=== PATIENT | female | born 1950 | race Caucasian/White ===

== ENCOUNTER 2023-07-08 23:50 | Inpatient (IN) | payer OTHER, SELFPAY ==
[2023-07-08 20:48] VITALS: BP 220/108
[2023-07-08 21:08] VITALS: BP 199/84
[2023-07-08 21:10] VITALS: BP 199/84; BMI 40.0
--- NOTE | 2023-07-08 21:15 | ED.GENMED ---
Addendum entered and electronically signed by Hola Granger DO 07/08/23 23:45:
EKG normal sinus rhythm 80 bpm T wave inversions similar to prior tracing
Original Note:
History of Present Illness
General
Chief Complaint: Fever
Source: patient and ambulance crew
Exam Limitations: clinical condition and altered mental status
Time Seen by Provider: 07/08/23 21:04
Nursing documentation reviewed up to this point in time: agreed with
Travel History
Have you had any contact with someone who has COVID-19?: No
Do you have any symptoms of coronavirus? Fever > 100 degrees, chills, cough, shortness of breath, sore throat, loss of taste or smell, muscle aches, or headache?: Yes
Symptoms:: fever
History of Present Illness
History of Present Illness:
72-year-old female lives alone, EMS has been at the house recently, apparently her home is in a state of disarray EMS suggested that case management she has had fever vomiting not taking her meds apparently, here she looks confused, she has had
urinary frequency
Past History
Past History
ED Past Medical History: Arrthythmia (Atypical atrial rhythm), HTN, Hypercholesterolemia, NIDDM and Other (Rheumatic fever as child, Lymes disease)
ED Past Surgical History: Appendectomy and Other (Exp Lap)
Social History
Tobacco: Non-smoker
Alcohol: None
Personal:
Living: with family
Review of Systems
Review of Systems
All Other Systems: Not applicable
Constitutional: Reports fever, fatigue and chills
Respiratory: Denies trouble breathing
ABD/GI: Reports nausea and vomiting; Denies abdominal pain
: Reports dysuria, frequency and urgency
Musculoskeletal: Reports no symptoms
Neurological: Reports weakness
Hematologic/Lymphatic: Reports no symptoms
Psychiatric: Reports no symptoms
Phy Exam
Physical Exam
Physical Exam:
Physical Exam
General: Febrile ill-appearing
Neck: Lips are dry
Heart: Tachycardia
Lungs: no acute respiratory distress. clear bilaterally
Abdomen: Nontender
Neuro: alert and oriented. Globally weak
Skin: no rash
Psychiatric: well kept. interactive and cooperative
Extremities: no edema.
Course
Orders/Labs/Results
Orders:
Orders
07/08/23 21:06
Cardiac Monitoring- Treatment ONCE
IV Insert/Care/Rem.- Treatment PRN
Straight cath- Treatment ONCE
0.9% Sodium Chloride 1000 ml [Nss] 2,000 ml IV BOLUS
Acetaminophen [Tylenol] 1,000 mg PO NOW STA
07/08/23 21:07
Electrocardiogram (*1) Urgent
Reason for Study: Other
Other Reason for Exam: sepsis
EKG- Treatment ONCE
CR Chest Portable - 1 View Urgent
Comment:
Reason For Exam: sepsis
Reason Study Needs to be Portable: Patient Unstable
07/08/23 22:17
Complete Blood Count/With Diff Urgent
Comprehensive Metabolic Panel Urgent
Lactic Acid Q4H
Comment: CANCEL 2nd LACTIC ACID IF 1st LACTIC ACID IS LESS THAN 2
Blood Culture Q30M
GENESIS Source: Blood/Venous
Specimen Description:
Blood Culture Q30M
GENESIS Source: Blood/Venous
Specimen Description:
07/08/23 22:46
Urinalysis Reflex To Culture Urgent
Date Specimen was Collected: 07/08/23
Time Specimen was Collected: 22:44
Urine Microscopic Reflex Cult Urgent
Urine Culture Urgent
GENESIS Source: U
Specimen Description:
Date Specimen was Collected: 07/08/23
Time Specimen was Collected: 22:44
07/08/23 23:03
Aztreonam [Azactam] 2,000 mg IV NOW STA
07/08/23 23:45
*Vancomycin IV Pharmacy to Dose VANCOMYCIN Pharmacy to Dose [VANCOCIN Pharmacy to Dose] 1 each Pharmacy To Prepare [Call Pharmacy To Prepare] 0 ml IV PER PROTOCOL
07/09/23 01:15
Lactic Acid Q4H
Comment: CANCEL 2nd LACTIC ACID IF 1st LACTIC ACID IS LESS THAN 2
Abnormal Lab Results
07/08/23 07/08/23
22:17 22:46
Plt Count 128 L 10^3/uL
(130-400)
MPV 10.8 H fL
(7.4-10.4)
Abs Immat Gran (auto) 0.1 H 10^3/uL
(0-0.05)
Absolute Neuts (auto) 9.2 H 10^3/uL
(1.4-6.5)
Absolute Lymphs (auto) 0.2 L 10^3/uL
(1.2-3.4)
Immature Gran % 0.6 H %
(0-0.5)
Neutrophils % 91.3 H %
(42.2-75.2)
Lymphocytes % 2.0 L %
(20.5-51.1)
Sodium 133 L mmol/L
(135-145)
BUN 19 H mg/dl
(7-17)
Creatinine 1.3 H mg/dL
(0.6-1.0)
Glucose 121 H mg/dl
(70-99)
Total Bilirubin 1.4 H mg/dl
(0.2-1.3)
Total Protein 6.0 L g/dl
(6.3-8.2)
Albumin 3.2 L g/dl
(3.5-5.0)
Ur Occult Blood Reflex 3+ A
(Negative)
Urine Nitrite (Reflex) Positive A
(Negative)
Leukocyte Esterase Rfl 1+ A
(Negative)
Urine Albumin (Reflex) 3+ A
(Neg - Trace)
07/08/23 22:17
07/08/23 22:17
Vital Signs
Initial and Last Documented VS:
Initial Vital Signs
Temp Pulse Resp BP Pulse Ox
103.2 F H 68 20 220/108 94
07/08/23 20:48 07/08/23 20:48 07/08/23 20:48 07/08/23 20:48 07/08/23 20:48
Last Documented Vital Signs
Temp Pulse Resp BP Pulse Ox
99.5 F 65 24 199/84 97
07/08/23 22:46 07/08/23 21:45 07/08/23 21:45 07/08/23 21:10 07/08/23 21:30
*Critical Care Note
Total Time (30-74mins, 75-104mins- exclusive of procedures): 12
Update Note
Update Note:
11 PM labs noted urine noted patient high fever concern for bacteremia chest x-ray noted allergies noted broad-spectrum antibiotics ordered will require admission
ED Attending Note
-
Portions of this chart may have been created with voice recognition software.� Occasional wrong word or��sound alike� substitutions may have occurred due to the inherent limitations of voice recognition software.
Discharge Plan
Departure
Patient Disposition: Admit
Date of Disposition: 07/08/23
Time of Disposition: 23:04
Admit to: Telemetry
Presentation/result/management discussed w/ accepting MD/DO: Hospitalist
Patient with high blood pressure during this ER visit?: No
Condition: Fair
Covid-19: Not Applicable
Discharge Problem:
Sepsis
Prescriptions:
No Action
metformin 1,000 MG tablet
1,000 mg PO DAILY
acetaminophen [Tylenol Extra Strength] 500 MG tablet
500 mg PO Q6HPRN PRN (Reason: pain)
cyclopentolate 1 DROP drops
1 drp BOTH EYES HS
potassium chloride [Klor-Con M20] 20 MEQ tablet,ER particles/crystals
20 meq PO DAILY Qty: 30 2RF
allopurinol 100 MG tablet
100 mg PO DAILY Qty: 30 1RF
rivaroxaban [Xarelto] 20 MG tablet
20 mg PO QPM Qty: 30 2RF
colchicine 0.6 MG tablet
0.6 mg PO BID PRN (Reason: gout pain) Qty: 60 0RF
Timolol
1 drp BOTH EYES DAILY
furosemide 40 MG tablet
20 mg PO DAILY
carvedilol 6.25 MG tablet
12.5 mg PO BID
sotalol [Betapace AF] 120 MG tablet
160 mg PO DAILY
losartan 25 MG tablet
25 mg PO DAILY
latanoprost 1 DROP drops
1 drp OPHTHALMIC DAILY
cholecalciferol (vitamin D3) 2,000 UNIT tablet
2,000 unit PO DAILY
Referrals:
Anselmo Youngblood MD [Family Provider] -
Interventions
Interventions:
*Risk Screen - Suicide Last Done: 07/08/23 20:48
*General Assessment Last Done: 07/08/23 20:48
*Neglect/Abuse Screening Last Done: 07/08/23 20:48
ED- Fall Risk Assessment Last Done: 07/08/23 20:48
*ED COVID-19 Vaccine History Last Done: 07/08/23 20:48
Discharge Date and Time
Print Language: SERBIAN
[2023-07-08] MEDS: NSS 2000 IV (21:29)
[2023-07-08] MEDS: TYLENOL 1000 MG PO (21:46)
[2023-07-08 22:29] LABS: % Basophils 0.4 % (0-2); % Immature Granulocytes 0.6 % (0-0.5); % Monocytes 5.7 % (1.7-9.3); % Neutrophils 91.3 % (42.2-75.2); Absolute Immature Granulocytes 0.1 10^3/uL (0-0.05); Absolute Lymphocytes 0.2 10^3/uL (1.2-3.4); Absolute Monocytes 0.6 10^3/uL (0.1-0.6); Absolute Neutrophils 9.2 10^3/uL (1.4-6.5); Hematocrit 37.7 % (37.0-47.0); Hemoglobin 12.9 g/dL (12.0-16.0); Mean Corp Hgb Conc. 34.2 g/dL (33.0-37.0); Mean Corpuscular Hgb 29.9 pg (27.0-31.0); Mean Corpuscular Volume 87.5 fL (81.0-99.0); Mean Platelet Volume 10.8 fL (7.4-10.4); Nucleated Red Blood Cells % 0 %; Platelet Count 128 10^3/uL (130-400); Red Blood Cell Count 4.31 10^6/uL (4.20-5.40); Red Cell Dist. Width 13.7 % (11.5-14.5); White Blood Cell Count 10.1 10^3/uL (4.8-10.8)
[2023-07-08 22:39] LABS: Lactic Acid 1.4 mmol/L (0.7-2.0)
[2023-07-08 22:40] LABS: ALT (SGPT) 14 U/L (0-35); AST (SGOT) 23 U/L (14-36); Albumin 3.2 g/dl (3.5-5.0); Alkaline Phosphatase 71 U/L (38-126); Blood Urea Nitrogen 19 mg/dl (7-17); Calcium 8.5 mg/dl (8.4-10.2); Carbon Dioxide 25 mmol/L (22-30); Chloride 102 mmol/L (98-107); Estimated Creatinine Clearance 52 ml/min; Glucose 121 mg/dl (70-99); Potassium 3.8 mmol/L (3.5-5.1); Sodium 133 mmol/L (135-145); Total Bilirubin 1.4 mg/dl (0.2-1.3); eGFR 43.69
[2023-07-08 22:59] LABS: Urine Albumin 3+ (Neg - Trace); Urine Bilirubin Negative (Negative); Urine Character Slightly Cloudy (Clear); Urine Color Yellow; Urine Glucose Negative (Negative); Urine Ketone Negative (Negative); Urine Leukocyte 1+ (Negative); Urine Nitrite Positive (Negative); Urine Occult Blood 3+ (Negative); Urine Urobilinogen Negative (Neg - 1+)
[2023-07-08 23:00] VITALS: BP 155/78
[2023-07-08 23:07] LABS: Urine Red Blood Cell 16-20 /HPF (0-2)
--- NOTE | 2023-07-08 23:07 | HPS.HSE ---
Addendum entered and electronically signed by Romario Gutierrez MD 07/08/23 23:48:
I saw and examined the patient.
The OUTER DIAMETER GRINDER TOOL or PA's note was reviewed and I agree with the note.
Comment: see MY UPDATE NOTE
Original Note:
Family Physician
-
Family Physician: Anselmo Youngblood
Chief Complaint
-
fever
urinary frequency, urgency
vomitting
History of Present Illness
72-year-old with past medical history for hypertension, hyperlipidemia, diabetes, rheumatic fever, Lyme disease, typhoid, hyperlipidemia presented as a urinary frequency and urgency since yesterday. She had a fever of 101.3 at home today. She took
Tylenol. But she vomited multiple times. she was incontinence of diarrhea once. . Patient complained of lower abdominal pain. She was having rigors and chills which prompted her to call 911. Patient denies any headache, dizziness, syncopal
episode. Patient denied chest pain, short of breath.
Positive UA. Patient received Azactam and vancomycin in ER. Patient also received 2 L normal saline in ER admitting for further management.
Medical History
Past Medical History
Past Medical History: Reports Other
Additional Past Medical History:
Hyperlipidemia
Hypertension
Hemorrhoids
A-fib
Herpes zoster
Gout
Osteoarthritis
Chronic kidney disease stage III
Pulmonary nodule
Coronary artery disease
Glaucoma
Type 2 diabetes
Past Surgical History: Reports Other
Additional Past Surgical History:
Appendectomy
Tonsillectomy
Social History
Tobacco: Non-smoker
Alcohol: None
Drug: None
Personal: Single
Living: Alone
Family History
Family History: Not pertinent
Allergies / Home Medications
Allergies reflects when Allergies were last updated in [facility].
Home Medications with original date entered in [facility]
Allergy/Medication List:
Allergies
Allergy/AdvReac Type Severity Reaction Status Date / Time
cephalexin monohydrate Allergy Itching/Per Verified 07/08/23 20:48
[From Keflex] pt.,
'raging
vaginitis'
Penicillins Allergy Rash Verified 07/08/23 20:48
Tetracyclines Allergy Unknown Verified 07/08/23 20:48
Home Medications
metformin 1,000 mg tablet 1,000 mg PO DAILY 10/04/13
acetaminophen 500 mg tablet (Tylenol Extra Strength) 500 mg PO Q6HPRN PRN pain 08/16/16
cyclopentolate 1 % eye drops 1 drp BOTH EYES HS 08/16/16
allopurinol 100 mg tablet 100 mg PO DAILY ##30 08/26/16
colchicine 0.6 mg tablet 0.6 mg PO BID PRN gout pain #60 tabs 08/26/16
potassium chloride 20 mEq tablet,extended release(part/cryst) (Klor-Con M) 20 meq PO DAILY ##30 08/26/16
rivaroxaban 20 mg tablet (Xarelto) 20 mg PO QPM #30 tabs 08/26/16
Timolol 1 drp BOTH EYES DAILY 10/14/17
carvedilol 6.25 mg tablet 12.5 mg PO BID 10/14/17
cholecalciferol (vitamin D3) 50 mcg (2,000 unit) tablet 2,000 unit PO DAILY 10/14/17
furosemide 40 mg tablet 20 mg PO DAILY 10/14/17
latanoprost 0.005 % eye drops 1 drp OPHTHALMIC DAILY 10/14/17
losartan 25 mg tablet 25 mg PO DAILY 10/14/17
sotalol 120 mg tablet (Betapace AF) 160 mg PO DAILY 10/14/17
Review of Systems
-
Constitutional: Reports No Symptoms
EENT: Reports No Symptoms
Respiratory: Reports No Symptoms
Cardiac: Reports No Symptoms
Abdomen/GI: Reports No Symptoms
: Reports Frequency, Urgency and Other (Lower abdominal pain)
Musculoskeletal: Reports No Symptoms
Skin: Reports No Symptoms
Neurological: Reports No Symptoms
Endocrine: Reports No Symptoms
Hematologic/Lymphatic: Reports No Symptoms
Psych: Reports No Symptoms
Physical Exam
Vital Signs
Vital Signs
Temp Pulse Resp BP Pulse Ox
99.5 F 65 24 199/84 97
07/08/23 22:46 07/08/23 21:45 07/08/23 21:45 07/08/23 21:10 07/08/23 21:30
Physical Exam
General: Well Developed, Well Nourished and No Apparent Distress
HEENT: NormoCephalic, Moist mucous membranes and Atraumatic
Respiratory: Clear
Cardiac: S1/S2 and Regular Rhythm; No Murmur or Rub
GI: Soft, Non Tender, Non Distended and Normal Bowel Sounds; No Organomegaly
Rectal: Deferred by Provider
Musculoskeletal: No Clubbing, No Cyanosis and No Edema
Skin: No Rash
Neuro: AO x 3 and Nonfocal/grossly intact
Psych: Calm
Laboratory Results
-
07/08/23 22:17
07/08/23 22:17
Laboratory Results
Lactic Acid 1.4 mmol/L (0.7-2.0) 07/08/23 22:17
Total Bilirubin 1.4 mg/dl (0.2-1.3) H 07/08/23 22:17
AST 23 U/L (14-36) 07/08/23 22:17
ALT 14 U/L (0-35) 07/08/23 22:17
Alkaline Phosphatase 71 U/L (38-126) 07/08/23 22:17
Data Reviewed
-
Lab Data: Labs Reviewed by me
Impression/Plan
-
# Sepsis likely from urinary tract infection
-Fever 103.2, tachypneic
-Urine and blood culture sent from ER
-IV Azactam continued
-Received a dose of Vanco and Azactam in ER
-Tylenol as needed for fever
-ID consulted for abx recommendation.
#diarrhea/vomiting likely from UTI/viral
-zofran prn for n/v
-stool culture added
# Hyponatremia likely from dehydration/CKD stage IIIb
-Sodium 133, creatinine 1.3
-Fluids continued
-Monitor BMP in a.m.
# Hypertension urgency
-Blood pressure elevated in ER
-Hold hydrochlorothiazide
#type 2 DM
-not on diabetic meds
-insulin sliding scale
=CHO diet
#GOUT
-allopurinol continued
# Paroxysmal A-fib
-Obtain EKG
-Sotalol continued
-Xarelto continued
-Hold Coreg
# DVT prophylaxis
-Xarelto
# CODE STATUS
-Full code
[2023-07-08 23:08] LABS: Urine Bacteria Many (Negative); Urine White Cell >100 /HPF (0-5)
[2023-07-08] MEDS: AZACTAM 2000 MG IV (23:40)
--- NOTE | 2023-07-08 23:40 | W.PN.UPDATE ---
Update Note
Progress Note Update
This note serves as an addendum to the H&P by scrub technician GUILLAUME Subha MARK
HPI
72F Home alone, non smoker HX DMT2, HTN on Losartan, HX Prx AF on Xarelto, Sotalol plus Carvedilol , HX HFrEF on Lasix BiB EMS for evaaution of fever and urinary frequency and home is in disarray
ROS:
Reports recent diarrhea and incontinence of feces
Urinary frequency and urgency since yesterday
Associated weakness.
At ER:
Unkempt on arrival
T 103.2 with chills and rigors
BP 220/110
Due to N / V she is unable to take PO meds
Reviewed VS: T103.2 HR 65 on Carvedilol BP 220/118- 200/84 RR24
PE
Class II obesity
Gen: does not look toxic
HEENT: anicteric
Neck: supple
Lungs: CTA
Cor: Hypertensive urgency RRR S1 S2
Abdomen: Benign abdomen, Vo CVA tenderness
ANIMAL CARE WORKER: Alert, NFND
MS: no edema
Psych: Calm
Data
nl WCC
Plt 128
LA 1.4
Na 133
BUN 19
Cr 1.3 - baseline range is 1.5 - 1.9
eGFR 43
TB 1.4 nl ALT and AST
UA POS UTI
CXR: Unremarkable exam
08/16/16 TTE
LVEF appears at least moderately reduced
ASSESSMENT & PLAN
Pending Rx reconciliation
Sepsis( T > 100.5, RR > 20 ) due to symptomatic UTI
HX Rheumatic fever as a child and took 4 yrs of PCN without allergy. Then took generic PCN and had ADES but she cannot recall the detailed reaction
HX Vaginitis with Keflex
Doubt true allergy to Keflex and PCN
- Cont. IV Aztreonam now
- IVF 60/Hrs
- f/u T, WCC
- f/u UCx UCx
- ID consult for ABx
Recent diarrhea with N.V DDX acute viral GE ?
Denied recent ABx exposure
Denied recent travel
- Gentle IVF
- stool Cx
Acute thrombocytopenia due to sepsis
- Trend Plt
HTN urgency due to ubale to tolerate PO meds
- add IV Hydralazine PRN for SBP > 165, DBP > 110
Suspect CKD with RODOLFO due to UTI
- Held Losartan
- IVF and f/u Cr
HX HFrEF: currently not in acute HF
At risk for volume expansion with HX HFrEF
08/16/16 TTE: LVEF appears at least moderately reduced
- Held HCTZ
- daily IOs and Wt
HX Prx AF
- on Xarelto, Sotalol
- Held Carvedilol for now
HX DMT2
- Not on Metformin
- add ISS low
Class II obesity with BMI 39.9 due to calorie excess affect all aspect of life
DVT Px: Xarelto
Code: Full
IP TLM
[2023-07-09] VITALS (10 sets, daily range): BP systolic 118–200; BP diastolic 53–98; PULSE 64; O2SAT 97; BMI 39.8
[2023-07-09] MEDS: VANCOCIN 540 MG IV (00:22)
--- NOTE | 2023-07-09 01:45 | PTCARENOTE ---
Pt arrived from the ED via stretcher and stand and pivot to bed w/ single point cane. Pt AAOx3, VSS, w/o complaints of pain. Pt is oriented to room resting comfortably w/ call bermudez within reach.
--- NOTE | 2023-07-09 02:45 | PTCARENOTE ---
Addendum entered by Brian Pham RN 07/09/23 07:53:
@03:37 pt temp orally 103.4, bp 200/98, hr 88, resp 22, pulse ox 89% rm. RN placed pt on 2L NC sating at 93%. C APPLICATION DEVELOPER made aware- ordered Hydralazine 10mg IV PRN and stat dose Mortin 400mg PO. RN administered Hydralazine 10mg IV. Pt refused stat dose
of Motrin and stated her mother had a 'bad' allergic reaction and is worried she will react the same. Pt is resting comfortably w/ call bermudez within reach.
Original Note:
Pt complained of chills w/ temp 103.1 orally and VSS. RN administered Tylenol 650mg and placed cooling packs B/L armpits and groin. C APPLICATION DEVELOPER made aware- no new orders at this time.
[2023-07-09] MEDS: TYLENOL 650 MG PO ×3 (02:46→22:59)
[2023-07-09] MEDS: NSS 1000 IV (03:22)
[2023-07-09] MEDS: APRESOLINE 10 MG IV (04:04)
[2023-07-09] MEDS: STERILE WATER FOR INJECTION 10 ML IV ×2 (05:22→12:55)
[2023-07-09] MEDS: AZACTAM 2000 MG IV ×2 (05:23→12:55)
[2023-07-09 07:41] LABS: Glucose - Point of Care 113 mg/dl (70-99)
--- NOTE | 2023-07-09 08:40 | W.PN.HOSP.TC ---
Today's Communication/Plan
-
IVF. IV antibiotics.
Assessment / Plan
Assessment / Plan
Physical Exam
General: Acutely ill
HEENT: NormoCephalic, Moist mucous membranes and Atraumatic
Respiratory: Clear
Cardiac: S1/S2 and Regular Rhythm; No Murmur or Rub
GI: Soft, Non Tender, Non Distended and Normal Bowel Sounds; No Organomegaly
Rectal: Deferred by Provider
Musculoskeletal: No Clubbing, No Cyanosis and No Edema
Skin: No Rash
Neuro: AO x 3 and Nonfocal/grossly intact
Psych: Calm
A/P:
# Sepsis likely from urinary tract infection
-Fever 103.2, tachypneic
-Urine and blood culture sent from ER
-IV Azactam continued
-Received a dose of Vanco and Azactam in ER
-Tylenol as needed for fever
-ID consulted.
-Started on IV Rocephin
#Hypokalemia
-replete and trend
-check mg in am
#RODOLFO
-Cont ivf
-renal US
-monitor renal function in am
#diarrhea/vomiting likely from UTI/viral
-zofran prn for n/v
-stool culture added
# Hyponatremia likely from dehydration/CKD stage IIIb
-Sodium 133, creatinine 1.3 but worsening
-Fluids continued
-Monitor BMP in a.m.
# Hypertension urgency
-Blood pressure elevated in ER--> now improved
-Hold hydrochlorothiazide
#type 2 DM
-not on diabetic meds
-insulin sliding scale
=CHO diet
#GOUT
-allopurinol continued
# Paroxysmal A-fib
-Obtain EKG
-Sotalol continued
-Xarelto continued
-Hold Coreg
# DVT prophylaxis
-Xarelto
# CODE STATUS
-Full code
Anticipated Discharge: 24 - 48 hours
Subjective/Interval History
-
Date of Service: July 09, 2023
She feels better overall, no abd pain/n/v.
Objective Data
-
Labs:
Laboratory Results
07/08/23 07/09/23
22:17 06:16
WBC 10.1 Pending
Hgb 12.9 Pending
Hct 37.7 Pending
Plt Count 128 L Pending
Sodium 133 L Pending
Potassium 3.8 Pending
Chloride 102 Pending
Carbon Dioxide 25 Pending
BUN 19 H Pending
Creatinine 1.3 H Pending
Glucose 121 H Pending
Calcium 8.5 Pending
Total Bilirubin 1.4 H
AST 23
ALT 14
Alkaline Phosphatase 71
Vital Signs:
Vital Signs
Temp Pulse Resp BP Pulse Ox
99.3 F 68 18 122/53 95
07/09/23 07:40 07/09/23 07:40 07/09/23 07:40 07/09/23 07:40 07/09/23 07:40
I&O
07/08/23 07/09/23 07/10/23
06:59 06:59 06:59
Intake Total 240 / 240
Balance 240 / 240
[2023-07-09 08:47] LABS: Hematocrit 37.5 % (37.0-47.0); Hemoglobin 12.4 g/dL (12.0-16.0); Mean Corp Hgb Conc. 33.1 g/dL (33.0-37.0); Mean Corpuscular Volume 90.6 fL (81.0-99.0); Mean Platelet Volume 11.1 fL (7.4-10.4); Platelet Count 109 10^3/uL (130-400); Red Blood Cell Count 4.14 10^6/uL (4.20-5.40); Red Cell Dist. Width 13.8 % (11.5-14.5); White Blood Cell Count 9.4 10^3/uL (4.8-10.8)
[2023-07-09] MEDS: BETAPACE 80 MG PO ×2 (08:54→19:41)
[2023-07-09] MEDS: ZYLOPRIM 300 MG PO (08:54)
[2023-07-09 10:38] LABS: Blood Urea Nitrogen 22 mg/dl (7-17); Calcium 7.9 mg/dl (8.4-10.2); Carbon Dioxide 20 mmol/L (22-30); Chloride 108 mmol/L (98-107); Estimated Creatinine Clearance 45 ml/min; Glucose 104 mg/dl (70-99); Potassium 3.1 mmol/L (3.5-5.1); Sodium 136 mmol/L (135-145)
[2023-07-09 11:52] LABS: Glycohemoglobin (HgbA1c) 5.9 % (4.0-5.6)
--- NOTE | 2023-07-09 12:53 | CON.ID ---
Consultation
-
Date/Time Consultation Requested: 07/09/23 1:36
Date/Time Consultation Performed: 07/10/23 12:55
Requesting Provider: Ck BELTRÁN
Performing Provider: Dr Silva
Reason for Consultation: UTI, stated allergies
Chief Complaint / Past History
Chief Complaint
fever
History of Present Illness
Ms Bland is a 72 year old female with history of mulitple stated antibiotic allergies, DM2 controlled, borderline class III obesity who presented here 07/07 for fever to 101.3, rigors , urinary frequency, vomiting. Reports fecal incontinence x1
and abdominal pain. No chest pain or shortness of breath
Since arrival here she has been febrile to Tmax of 103.4, bp intermittently markedly hypertensive, wbc on arrival 10.1, hgb 12.9, plt 128, L shift is noted, cr now 1.5 which appears to be her baseline, t bili 1.4, ast 23, alt 14, alk phos 71, UA
>100 WBC/hpf, 07/07 cxr: unremarkable, urine culture pending, blood cultures x2 at the same time GNR aerobic and anerobic bottles, c diff checked and negative, a stool culture was also sent and is in progress, qtc: 483, ID is consulted for assistance
with management
Past History
Additional Past Medical History:
Hyperlipidemia
Hypertension
Hemorrhoids
A-fib
Herpes zoster
Gout
Osteoarthritis
Chronic kidney disease stage III
Pulmonary nodule
Coronary artery disease
Glaucoma
Type 2 diabetes
Additional Past Surgical History:
Appendectomy
Tonsillectomy
Allergy History:
cephalexin monohydrate [From Keflex] Allergy (Verified 07/08/23 20:48)
Itching/Per pt., 'raging vaginitis'
Penicillins Allergy (Verified 07/08/23 20:48)
Rash
Tetracyclines Allergy (Verified 07/08/23 20:48)
Unknown
Medications Reviewed: Yes
Social History
Tobacco: Non-Smoker
Alcohol: None
Drug: None
Family History
Family History: Not Pertinent
Review of Systems
Review of Systems
General: Fever and Chills
All systems: All other systems were reviewed and were negative
Vital Signs
Temp Pulse Resp BP Pulse Ox
99.1 F 64 20 123/66 97
07/09/23 11:50 07/09/23 11:50 07/09/23 11:50 07/09/23 11:50 07/09/23 11:50
Physical Exam
Physical Exam
Constitutional: No Acute Distress and Obese
Cardiovascular: Regular Rate and S1/S2; Negative Murmur or Rub
Pulmonary: Clear and Symmetric; Negative Wheezes, Rales or Rhonchi
Gastrointestinal: Soft, Non Tender, Non Distended and Normal Bowel Sounds
Genito-Urinary: Negative Suprapubic Tenderness or CVA Tenderness
Skin: Warm, Dry and Rash (mild intergrio under the panus + yeasty odor); Negative Jaundice
Lab / Diagnostic Study Results
07/09/23 06:16
07/09/23 06:16
Abs Immat Gran (auto) 0.1 10^3/uL (0-0.05) H 07/08/23 22:17
Absolute Neuts (auto) 9.2 10^3/uL (1.4-6.5) H 07/08/23 22:17
Absolute Lymphs (auto) 0.2 10^3/uL (1.2-3.4) L 07/08/23 22:17
Absolute Monos (auto) 0.6 10^3/uL (0.1-0.6) 07/08/23 22:17
Absolute Basos (auto) 0.0 10^3/uL (0-0.2) 07/08/23 22:17
Immature Gran % 0.6 % (0-0.5) H 07/08/23 22:17
Neutrophils % 91.3 % (42.2-75.2) H 07/08/23 22:17
Lymphocytes % 2.0 % (20.5-51.1) L 07/08/23 22:17
Monocytes % 5.7 % (1.7-9.3) 07/08/23 22:17
Eosinophils % 0.0 % (0-6) 07/08/23 22:17
Basophils % 0.4 % (0-2) 07/08/23 22:17
Lactic Acid Cancelled 07/09/23 01:15
Ur Squamous Epith Cells 3-5 /LPF (Few) 07/08/23 22:46
Microbiology Results
Micro:
07/08/23 22:17 Blood Culture - Preliminary
Blood/Venous Positive culture in progress
Gram Stain - Final
07/08/23 22:17 Blood Culture - Preliminary
Blood/Venous Positive culture in progress
Gram Stain - Final
07/09/23 06:22 C. difficile GDH Antigen & Toxins - Final
Feces/Stool Negative for toxigenic C.difficile
07/09/23 06:14 Salmonella/Shigella Culture - Pending
Feces/Stool Campylobacter Culture - Pending
Shiga Toxin Test - Pending
07/08/23 22:46 Urine Culture - Pending
Urine
Assessment / Plan
Complicated UTI
GNR bacteremia
CKD
DM2 controlled
History of vaginitis with keflex, rash with amoxicillin, unknown reported allergy/adr with tetracycycline
- follow blood and urine cultures for ID/sensi
- no need to repeat blood cultures with GNR
- QTc 480
- trial of ceftriaxone - she is agreeable
- PRN monistat ordered, patient my apply herself if devleoping symptoms
- DM2 in controlled - decreases risk of vaginal yeast infection
- lactobacillus based probiotic may support usual vaginal paige
- follow clinically
--- NOTE | 2023-07-09 13:16 | PTCARENOTE ---
Patient refusing accuchecks. Provider made aware.
--- NOTE | 2023-07-09 15:51 | CM ---
Patient seen at bedside. Patient states that her in 2021. Patient last here at in 2017. Patient stated that she lives in a one story home, patient now states that she does not have any supports at home. Patient is driving and her
PCP is Dr. Markham. Patient PCP is Johnathan Adhikari in [place]. Per patient she is worried about her cat and the lack of food. Patient is going to call neighbor to go in and feed/care for cat. Patient expressed concern about costs of food to ID
physician, CM will offer referral to [facility] and [facility] referral would assist with sheet metal worker/nursing to assess for further resources that would help patient. CM will continue to follow for discharge planning needs.
Plan; home with VN vs [facility] referral
[2023-07-09] MEDS: ROCEPHIN 2000 MG IV (17:03)
[2023-07-09] MEDS: STERILE WATER FOR INJECTION 20 ML IV (17:03)
[2023-07-09] MEDS: VISBIOME 2 CAP PO (17:06)
[2023-07-09] MEDS: XARELTO 20 MG PO (17:06)
[2023-07-09] MEDS: KCL 40 MEQ PO ×2 (18:17→21:00)
[2023-07-09] MEDS: DESENEX/MITRAZOL/ZEASORB 1 APPLIC TOPICAL (19:39)
[2023-07-09] MEDS: ZOFRAN 4 MG IV (22:59)
--- NOTE | 2023-07-09 23:00 | PTCARENOTE ---
Addendum entered by Brian Pham RN 07/10/23 04:18:
@01:40, Pt hr sustaining 135-140's. Mag 1.3 and K 3.4. WIRE WELDER made aware- ordered Cardizem drip 5mg/hr, Mag rider, KCl 40meq PO. Pt is resting comfortably w/ call bermudez within reach.
Addendum entered by Brian Pham RN 07/10/23 04:13:
@01:00, Pt hr sustaining 130-150's. WIRE WELDER made aware- ordered stat dose Cardizem 5mg IV. Pt is resting comfortably w/ call bermudez within reach.
Original Note:
Pt rhythm changed from NSR to Afib on tele monitor, hr sustaining 125-140's w/ a 6 beat run of V-tach. Pt complained of palpations, nausea, VSS. RN administered PRN Zofran and ordered EKG- Afib with rapid ventricular response. WIRE WELDER made aware-
ordered stat dose Lopressor 2.5mg IV and stat labs mag, CBC, BMP. Pt is resting comfortably w/ call bermudez within reach.
[2023-07-09] MEDS: KCL PO (23:10)
[2023-07-10] VITALS (8 sets, daily range): BP systolic 101–153; BP diastolic 62–101; BMI 40.2
[2023-07-10] MEDS: LOPRESSOR 2.5 MG IV (00:25)
[2023-07-10 00:59] LABS: Hematocrit 34.9 % (37.0-47.0); Hemoglobin 11.8 g/dL (12.0-16.0); Mean Corp Hgb Conc. 33.8 g/dL (33.0-37.0); Mean Corpuscular Hgb 29.9 pg (27.0-31.0); Mean Corpuscular Volume 88.6 fL (81.0-99.0); Red Blood Cell Count 3.94 10^6/uL (4.20-5.40); Red Cell Dist. Width 13.9 % (11.5-14.5); White Blood Cell Count 7.1 10^3/uL (4.8-10.8)
[2023-07-10 01:15] LABS: Blood Urea Nitrogen 30 mg/dl (7-17); Calcium 8.1 mg/dl (8.4-10.2); Carbon Dioxide 21 mmol/L (22-30); Chloride 108 mmol/L (98-107); Estimated Creatinine Clearance 48 ml/min; Glucose 109 mg/dl (70-99); Magnesium 1.3 mg/dl (1.6-2.3); Potassium 3.4 mmol/L (3.5-5.1); Sodium 133 mmol/L (135-145); eGFR 39.97
[2023-07-10] MEDS: CARDIZEM 5 MG IV (01:18)
[2023-07-10 01:36] LABS: Mean Platelet Volume 10.9 fL (7.4-10.4); Platelet Count 83 10^3/uL (130-400)
[2023-07-10] MEDS: MAGNESIUM SULFATE 50 IV (01:55)
[2023-07-10] MEDS: KCL 40 MEQ PO (01:56)
[2023-07-10] MEDS: CARDIZEM 125 IV ×3 (02:38→21:15)
--- NOTE | 2023-07-10 03:44 | W.PN.UPDATE ---
Update Note
Progress Note Update
RN notified CASHIER AND SALESPERSON, Patient HR sustaining 125-135. Hx of Afib and was NSR prior. Temp of 99.1, BP 118/90. Reports she feels the palpitations, Denies any chest pain or shortness of breath. Coreg is on hold, and did receive Sotalol 80mg PO at 1999.
EKG: ATRIAL FIBRILLATION WITH RAPID VENTRICULAR RESPONSE
NONSPECIFIC ST AND T WAVE ABNORMALITY
Gave Metoprolol 2.5 mg IV without any improvement.
Cardizem 5mg IV given then started the drip at 5mg without titration.
magnesium 1.3, gave 2mg mag rider once
k 3.4, gave one KCL 40 mEq PO once
Labs due in AM.
will consult Compotype Operator
HR continuos to be in 130's, will increase Cardizem drip to 10mg/hr.
[2023-07-10] MEDS: NSS 1000 IV (05:28)
[2023-07-10 05:38] LABS: Hematocrit 35.2 % (37.0-47.0); Hemoglobin 12.1 g/dL (12.0-16.0); Mean Corp Hgb Conc. 34.4 g/dL (33.0-37.0); Mean Corpuscular Volume 87.3 fL (81.0-99.0); Mean Platelet Volume 11.6 fL (7.4-10.4); Platelet Count 81 10^3/uL (130-400); Red Blood Cell Count 4.03 10^6/uL (4.20-5.40); White Blood Cell Count 6.3 10^3/uL (4.8-10.8)
[2023-07-10 06:07] LABS: Blood Urea Nitrogen 29 mg/dl (7-17); Calcium 8.2 mg/dl (8.4-10.2); Carbon Dioxide 20 mmol/L (22-30); Chloride 108 mmol/L (98-107); Estimated Creatinine Clearance 48 ml/min; Glucose 99 mg/dl (70-99); Magnesium 1.9 mg/dl (1.6-2.3); Potassium 3.6 mmol/L (3.5-5.1); Sodium 133 mmol/L (135-145); eGFR 39.97
[2023-07-10] MEDS: VISBIOME 2 CAP PO (08:10)
[2023-07-10] MEDS: BETAPACE 80 MG PO (08:10)
[2023-07-10] MEDS: ZYLOPRIM 300 MG PO (08:17)
[2023-07-10] MEDS: DESENEX/MITRAZOL/ZEASORB 1 APPLIC TOPICAL ×2 (08:27→19:42)
--- NOTE | 2023-07-10 08:54 | W.PN.HOSP.TC ---
Today's Communication/Plan
-
IV antibiotics. IV Cardizem drip.
Assessment / Plan
Assessment / Plan
Physical Exam
General: Acutely ill
HEENT: NormoCephalic, Moist mucous membranes and Atraumatic
Respiratory: Clear
Cardiac: S1/S2 and Regular Rhythm; No Murmur or Rub
GI: Soft, Non Tender, Non Distended and Normal Bowel Sounds; No Organomegaly
Rectal: Deferred by Provider
Musculoskeletal: No Clubbing, No Cyanosis and No Edema
Skin: No Rash
Neuro: AO x 3 and Nonfocal/grossly intact
Psych: Calm
A/P:
# Sepsis likely from urinary tract infection
-E. coli bacteremia and E. coli in the urine
-On IV Rocephin 2 g daily
-ID consult appreciated
-Continue IV fluids gentle hydration and stop in am
-ID consult appreciated
# Atrial fibrillation with rapid ventricular response
-On Cardizem drip
-Restarted Coreg
-Continue sotalol
-Continue cardiac monitoring
-Continue Xarelto
-Cardiology consult appreciated today and cardiac medications adjusted by cardiology.
#Hypokalemia
-Improved
#Hypomagnesemia
-Repleted and improved
#RODOLFO or CKD
-Cont ivf
-renal US pending
-monitor renal function in am
#diarrhea/vomiting likely from UTI/viral
-zofran prn for n/v
-stool culture including C. difficile is negative and rest of stool cultures pending.
# Hyponatremia likely from dehydration/CKD stage IIIb
-Sodium 133, creatinine 1.4
-Fluids continued
-Monitor BMP in a.m.
# Hypertension urgency
-Blood pressure elevated in ER--> now improved
-Hold hydrochlorothiazide (might not restart in the setting of hyponatremia)
#type 2 DM
-not on diabetic meds
-Hemoglobin A1c 5.9
-Okay to continue only insulin sliding scale
=CHO diet
#Gout
-allopurinol continued
# DVT prophylaxis
-Xarelto
# CODE STATUS
-Full code
Total time spent on today's encounter was 52 minutes which included time spent in counseling the patient/family regarding diagnosis and treatment plan as listed above, goals of care, and symptom management. Case was discussed with nursing staff,
specialists, and care coordinators/case management. All labs and imaging personally reviewed by me. Remainder the time spent in detailed review of previous records, lab data, imaging, and other medical provider documentation.
Anticipated Discharge: > 48 hours
Subjective/Interval History
-
Date of Service: July 10, 2023
Patient went into atrial fibrillation with rapid ventricular response. She was maxed on rate control medication drip and cardiology consulted. She remains afebrile.
Objective Data
-
Labs:
Laboratory Results
07/10/23 07/10/23 07/10/23
00:46 05:10 05:11
WBC 7.1 6.3
Hgb 11.8 L 12.1
Hct 34.9 L 35.2 L
Plt Count 83 L D 81 L
Sodium 133 L 133 L
Potassium 3.4 L 3.6
Chloride 108 H 108 H
Carbon Dioxide 21 L 20 L
BUN 30 H 29 H
Creatinine 1.4 H 1.4 H
Glucose 109 H 99
Calcium 8.1 L 8.2 L
Vital Signs:
Vital Signs
Temp Pulse Resp BP Pulse Ox
100 F 143 18 153/101 97
07/10/23 07:30 07/10/23 08:28 07/10/23 07:30 07/10/23 08:28 07/10/23 07:30
I&O
07/09/23 07/10/2307/10/24
06:59 06:59 06:59
Intake Total 240 / 240 1620 / 1620
Balance 240 / 240 1620 / 1620
--- NOTE | 2023-07-10 09:45 | W.PN.CD ---
Today's Communication / Plan
-
.
Impression / Plan
-
Impression: 72F with paroxysmal AF admitted with UTI/sepsis. AF has recurred.
Plan
AF
- she relates that she does well with sotalol/carvedilol but has had about eight paroxysms in the past year. She usually takes an extra half dose of carvediolol. She has been off carvedilol.
- Rate: diltiazem gtt added. Resume carvedilol and apply hold parameters
- Rhythm: continue sotalol but change to q24 (since GFR is between 40-60 for some time)
- Oral Anticoagulation: continue rivaroxaban but change to 15 given GFR 48
UTI/sepsis - monitor BP with all the cardiac meds lowering it
Resolved NICM
- hasn't seen us since 2016. It was assumed to be AF/tachycardia CM since it resolved with treatment
- update echo when HR better
Hypertension
Dyslipidemia
Morbid obesity
DMII
Pericardial cyst
Subjective: Dictated
Data
[facility] 2017: No CAD
Physical Exam
Vital Signs/Labs
Vital Signs
Temp Pulse Resp BP Pulse Ox
37.7 C 143 18 153/101 97
07/10/23 07:30 07/10/23 08:28 07/10/23 07:30 07/10/23 08:28 07/10/23 07:30
07/09/23 07/10/23 07/11/23
06:59 06:59 06:59
Actual Weight 258 lb 260 lb 7 oz
07/10/23 05:11
07/10/23 05:10
Magnesium 1.9 mg/dl (1.6-2.3) 07/10/23 05:10
Data Reviewed
-
Date of Service: July 10, 2023
[2023-07-10] MEDS: COREG 12.5 MG PO ×2 (10:15→19:35)
--- NOTE | 2023-07-10 12:49 | PTCARENOTE ---
Patient HR maintaining 125-145 after coreg administration this am. Cardiology and Hospitalist made aware. Continue to monitor on cardizem gtt @ 15mg/hr.
--- NOTE | 2023-07-10 13:07 | CM ---
Patient seen at bedside, patient stated that she has explored all aging and adult services programs but is [facility] with [facility]. CM to provide [facility] Lia[facility] contact information for her. Patient stated that she has no
food insecurities and that her neighbors have helped her with the cat. CM will continue to follow for discharge planning needs.
Plan; home with VN; [facility] information
--- NOTE | 2023-07-10 13:39 | CON.ID ---
Consultation
-
Date/Time Consultation Requested: 07/09/23 13:36
Date/Time Consultation Performed: 07/10/23 13:40
Requesting Provider: Subha walker
Performing Provider: Dr Silva
Reason for Consultation: right thumb tenderness, redness and swelling
Chief Complaint / Past History
Past History
Allergy History:
amoxicillin Allergy (Mild, Verified 07/09/23 13:31)
Rash
Tetracyclines Allergy (Mild, Verified 07/09/23 13:31)
Unknown
cephalexin monohydrate [From Keflex] Adverse Reaction (Mild, Verified 07/09/23 12:54)
Itching/Per pt., 'raging vaginitis'
Review of Systems
Vital Signs
Temp Pulse Resp BP Pulse Ox
98.5 F 137 18 120/85 96
07/10/23 11:20 07/10/23 12:31 07/10/23 11:20 07/10/23 11:20 07/10/23 11:20
Physical Exam
Lab / Diagnostic Study Results
07/10/23 05:11
07/10/23 05:10
Abs Immat Gran (auto) 0.1 10^3/uL (0-0.05) H 07/08/23 22:17
Absolute Neuts (auto) 9.2 10^3/uL (1.4-6.5) H 07/08/23 22:17
Absolute Lymphs (auto) 0.2 10^3/uL (1.2-3.4) L 07/08/23 22:17
Absolute Monos (auto) 0.6 10^3/uL (0.1-0.6) 07/08/23 22:17
Absolute Basos (auto) 0.0 10^3/uL (0-0.2) 07/08/23 22:17
Immature Gran % 0.6 % (0-0.5) H 07/08/23 22:17
Neutrophils % 91.3 % (42.2-75.2) H 07/08/23 22:17
Lymphocytes % 2.0 % (20.5-51.1) L 07/08/23 22:17
Monocytes % 5.7 % (1.7-9.3) 07/08/23 22:17
Eosinophils % 0.0 % (0-6) 07/08/23 22:17
Basophils % 0.4 % (0-2) 07/08/23 22:17
Lactic Acid Cancelled 07/09/23 01:15
Ur Squamous Epith Cells 3-5 /LPF (Few) 07/08/23 22:46
Microbiology Results
Micro:
07/08/23 22:17 Blood Culture - Preliminary
Blood/Venous Escherichia coli
Gram Stain - Final
07/08/23 22:17 Blood Culture - Preliminary
Blood/Venous Escherichia coli
Gram Stain - Final
07/09/23 06:14 Salmonella/Shigella Culture - Preliminary
Feces/Stool Culture in Progress
Campylobacter Culture - Preliminary
Culture in Progress
Shiga Toxin Test - Pending
07/08/23 22:46 Urine Culture - Preliminary
Urine Escherichia coli
07/09/23 06:22 C. difficile GDH Antigen & Toxins - Final
Feces/Stool Negative for toxigenic C.difficile
Assessment / Plan
Complicated UTI
GNR bacteremia
CKD
DM2 controlled
History of vaginitis with keflex, rash with amoxicillin, unknown reported allergy/adr with tetracycycline
- follow blood and urine cultures for ID/sensi
- no need to repeat blood cultures with GNR
- QTc 480
- trial of ceftriaxone - she is agreeable
- PRN monistat ordered, patient my apply herself if devleoping symptoms
- DM2 in controlled - decreases risk of vaginal yeast infection
- lactobacillus based probiotic may support usual vaginal paige
- follow clinically
[2023-07-10] MEDS: ROCEPHIN 2000 MG IV (16:24)
[2023-07-10] MEDS: STERILE WATER FOR INJECTION 20 ML IV (16:25)
[2023-07-10] MEDS: XARELTO 15 MG PO (16:28)
[2023-07-10] MEDS: NSS IV (16:54)
[2023-07-11] VITALS (8 sets, daily range): BP systolic 104–141; BP diastolic 69–88; PULSE 94; O2SAT 93; BMI 41.1
[2023-07-11] MEDS: NSS 1000 IV (04:11)
[2023-07-11 05:03] LABS: Hematocrit 35.7 % (37.0-47.0); Hemoglobin 11.7 g/dL (12.0-16.0); Mean Corp Hgb Conc. 32.8 g/dL (33.0-37.0); Mean Corpuscular Hgb 29.4 pg (27.0-31.0); Mean Corpuscular Volume 89.7 fL (81.0-99.0); Mean Platelet Volume 12.4 fL (7.4-10.4); Platelet Count 92 10^3/uL (130-400); Red Blood Cell Count 3.98 10^6/uL (4.20-5.40); White Blood Cell Count 6.4 10^3/uL (4.8-10.8)
[2023-07-11 05:32] LABS: Blood Urea Nitrogen 31 mg/dl (7-17); Calcium 8.4 mg/dl (8.4-10.2); Carbon Dioxide 21 mmol/L (22-30); Chloride 106 mmol/L (98-107); Estimated Creatinine Clearance 43 ml/min; Glucose 109 mg/dl (70-99); Potassium 3.6 mmol/L (3.5-5.1); Sodium 133 mmol/L (135-145); eGFR 34.05
--- NOTE | 2023-07-11 07:57 | W.PN.CD ---
Today's Communication / Plan
-
increase COREG to 25 mg bid
check ecg
npo p midnight for possible razia/dccv in the am.
Impression / Plan
-
Impression: 72F with paroxysmal AF admitted with UTI/sepsis. AF has recurred.
Plan
AF
- she relates that she does well with sotalol/carvedilol but has had about eight paroxysms in the past year. She usually takes an extra half dose of carvediolol. She has been off carvedilol.
- Rate: diltiazem gtt added still at 15. Resume carvedilol at typical dosing(25mg IBD)
-still with RVR, will make NPO p MN for RAZIA/DCCV in am if no improvement
- Rhythm: continue sotalol but change to q24 (since GFR is between 40-60 for some time)
-lets check a QT now that dose reduced.
- Oral Anticoagulation: continue rivaroxaban but change to 15 given GFR 48
-she has been taking it QOD due to hemorrhoidal bleeding, explained the importance of daily dosing and she agrees
UTI/sepsis - monitor BP with all the cardiac meds lowering it
Resolved NICM
- hasn't seen us since 2017. It was assumed to be AF/tachycardia CM since it resolved with treatment
- update echo when HR better
Hypertension
Dyslipidemia
Morbid obesity
DMII
Pericardial cyst
Subjective: she is feeling so much better
Data
[facility] 2017: No CAD
Physical Exam
Vital Signs/Labs
Vital Signs
Temp Pulse Resp BP Pulse Ox
98.1 F 100 20 132/72 95
07/11/23 03:28 07/11/23 03:28 07/11/23 03:28 07/11/23 03:28 07/11/23 03:28
07/10/23 07/11/23 07/12/23
06:59 06:59 06:59
Actual Weight 118.132 kg 120.712 kg
07/11/23 04:45
07/11/23 04:45
Magnesium 1.9 mg/dl (1.6-2.3) 07/10/23 05:10
Physical Exam
Constitutional: No acute distress
Cardiovascular: Pedal edema is absent, JVD pressure is normal and Rhythm/rate is irregular
Respiratory: Respiratory effort normal, Lungs clear to auscul., Wheeze Absent, Crackles Absent and Rhonchi Absent
Neuro/Psych: AO x 3
Data Reviewed
-
Date of Service: July 11, 2023
EKG: Tracing Personally Visualized and interpreted (fib with rates in the 120's. )
Medical Tests (PFT, Pathology etc): Discussed with Physician (may need razia/dccv tomorrow)
[2023-07-11] MEDS: VISBIOME 2 CAP PO (09:12)
[2023-07-11] MEDS: BETAPACE 80 MG PO (09:12)
[2023-07-11] MEDS: COREG 12.5 MG PO ×2 (09:13)
[2023-07-11] MEDS: DESENEX/MITRAZOL/ZEASORB 1 APPLIC TOPICAL ×2 (09:14→20:05)
[2023-07-11] MEDS: ZYLOPRIM 300 MG PO (09:14)
--- NOTE | 2023-07-11 13:32 | W.PN.HOSP.TC ---
Today's Communication/Plan
-
.
Assessment / Plan
Assessment / Plan
Physical Exam
General: Acutely ill
HEENT: NormoCephalic, Moist mucous membranes and Atraumatic
Respiratory: Clear
Cardiac: S1/S2 and Regular Rhythm; No Murmur or Rub
GI: Soft, Non Tender, Non Distended and Normal Bowel Sounds; No Organomegaly
Rectal: Deferred by Provider
Musculoskeletal: No Clubbing, No Cyanosis and No Edema
Skin: No Rash
Neuro: AO x 3 and Nonfocal/grossly intact
Psych: Calm
A/P:
# Sepsis likely from urinary tract infection
-E. coli bacteremia and E. coli in the urine
-On IV Rocephin 2 g daily
-ID consult appreciated
-Continue IV fluids gentle hydration and stop in am
-No dysuria. No flank pain.
# Paroxysmal atrial fibrillation with rapid ventricular response
-On Cardizem drip. Discussed with broth setter. Increase the dose of Coreg and possible cardioversion tomorrow if no improvement
-Continue sotalol
-Continue cardiac monitoring
-Continue Xarelto
-Appreciate cardiology
#Hyponatremia, mild
#Hypokalemia
-Improved
#Hypomagnesemia
-Repleted and improved
#Creatinine on admission 1.3. Creatinine 1.9 in 2017
Likely underlying chronic kidney disease stage IIIb
Continue to monitor renal function
#diarrhea/vomiting likely from UTI/viral
She is feeling better. No nausea or vomiting. Tolerating diet
-Zofran prn for n/v
-stool culture including C. difficile is negative and rest of stool cultures negative
# Hypertension urgency
Primary hypertension history
-Blood pressure elevated in ER--> now improved
-Held hydrochlorothiazide (might not restart in the setting of hyponatremia)
#type 2 DM
-not on diabetic meds
-Hemoglobin A1c 5.9
-Okay to continue only insulin sliding scale
=CHO diet
#Gout
-allopurinol continued
# DVT prophylaxis
-Xarelto
# CODE STATUS
-Full code
Total time spent on today's encounter was 57 minutes which included time spent in counseling the patient/family regarding diagnosis and treatment plan as listed above, goals of care, and symptom management. Case was discussed with nursing staff,
specialists, and care coordinators/case management. All labs and imaging personally reviewed by me. Remainder the time spent in detailed review of previous records, lab data, imaging, and other medical provider documentation.
Anticipated Discharge: 24 - 48 hours
Subjective/Interval History
-
Date of Service: July 11, 2023
No chest pain
No sob
No abd pain
Objective Data
-
Labs:
Laboratory Results
07/11/23
04:45
WBC 6.4
Hgb 11.7 L
Hct 35.7 L
Plt Count 92 L
Sodium 133 L
Potassium 3.6
Chloride 106
Carbon Dioxide 21 L
BUN 31 H
Creatinine 1.6 H
Glucose 109 H
Calcium 8.4
Vital Signs:
Vital Signs
Temp Pulse Resp BP Pulse Ox
97.8 F 78 18 113/78 98
07/11/23 11:00 07/11/23 11:00 07/11/23 11:00 07/11/23 11:00 07/11/23 11:00
I&O
07/10/23 07/11/23 07/12/23
06:59 06:59 06:59
Intake Total 1620 / 1620 2099
Balance 1620 / 1620 2099
[2023-07-11] MEDS: STERILE WATER FOR INJECTION IV (16:44)
[2023-07-11] MEDS: XARELTO 15 MG PO (17:00)
--- NOTE | 2023-07-11 17:18 | W.PN.ID1 ---
Date of Service
Date of Service: July 11, 2023
Today's Communication
cefdinir
Assessment / Plan
Complicated UTI
GNR bacteremia
CKD
DM2 controlled
History of vaginitis with keflex, rash with amoxicillin, unknown reported allergy/adr with tetracycycline
- switched to cefdinir - to complete 7 day course
- OTC monistat PRN
- lactobacillus based probiotic may support usual vaginal paige
- stable for dc from ID perspective
Chief Complaint
-: UTI
Subjective / Review of Systems
afebrile
bp stable
without leukocytosis
cr slight increase
blood cultures clearing
Vital Signs / Physical Exam
Vital Signs
Vital Signs
Temp Pulse Resp BP Pulse Ox
98 F 71 16 127/81 93
07/11/23 15:00 07/11/23 15:00 07/11/23 15:00 07/11/23 15:00 07/11/23 15:00
Physical Exam
Constitutional: No Acute Distress
Cardiovascular: Regular Rate
Pulmonary: Symmetric
Gastrointestinal: Distended
Objective Data
Lab Data
Lab Results
07/11/23 04:45
07/11/23 04:45
Estimated Creat Clear 43 ml/min 07/11/23 04:45
Lactic Acid Cancelled 07/09/23 01:15
Total Bilirubin 1.4 mg/dl (0.2-1.3) H 07/08/23 22:17
AST 23 U/L (14-36) 07/08/23 22:17
ALT 14 U/L (0-35) 07/08/23 22:17
Alkaline Phosphatase 71 U/L (38-126) 07/08/23 22:17
Most recent labs reviewed.
Micro Results:
07/09/23 06:14 Salmonella/Shigella Culture - Final
Feces/Stool No Salmonella, Shigella, Aeromonas or Plesiomonas species
isolated.
Campylobacter Culture - Final
No Campylobacter species isolated.
Shiga Toxin Test - Final
No E. coli Shiga Toxin 1 or 2 detected.
07/08/23 22:17 Blood Culture - Final
Blood/Venous Escherichia coli
Gram Stain - Final
07/08/23 22:17 Blood Culture - Final
Blood/Venous Escherichia coli
Gram Stain - Final
07/08/23 22:46 Urine Culture - Final
Urine Escherichia coli
07/09/23 06:22 C. difficile GDH Antigen & Toxins - Final
Feces/Stool Negative for toxigenic C.difficile
[2023-07-11] MEDS: COREG 25 MG PO (20:05)
[2023-07-12] VITALS (7 sets, daily range): BP systolic 103–165; BP diastolic 76–100; PULSE 106; O2SAT 97; BMI 41.1
[2023-07-12] MEDS: CARDIZEM 125 IV (00:59)
[2023-07-12 07:28] LABS: Hematocrit 34.9 % (37.0-47.0); Hemoglobin 11.5 g/dL (12.0-16.0); Mean Corpuscular Hgb 29.7 pg (27.0-31.0); Mean Corpuscular Volume 90.2 fL (81.0-99.0); Red Blood Cell Count 3.87 10^6/uL (4.20-5.40); White Blood Cell Count 6.1 10^3/uL (4.8-10.8)
--- NOTE | 2023-07-12 07:48 | W.PN.CD ---
Today's Communication / Plan
-
- cancel DESHAWN/CV
- Check TTE for LVEF
- start diltiazem CD 360 po qd and continue carvedilol. Her weight would support the 50 BID dosage of carvedilol so that might be next step (or verapamil instead of diltiazem)
Impression / Plan
-
Impression: 72F with paroxysmal AF admitted with UTI/sepsis. AF has recurred.
Plan
AF
- We had a long discussion re: DESHAWN/CV, which she does not want. She thinks more carvedilol will help. I reminded her she is back on her usual dose and diltiazem 15 mg/hr. She would like to pivot to rate control startegy for now
- cancel DESHAWN/CV
- Check TTE for LVEF
- start diltiazem CD 360 po qd and continue carvedilol. Her weight would support the 50 BID dosage of carvedilol so that might be next step (or verapamil instead of diltiazem)
- rivaroxaban
UTI/sepsis - monitor BP with all the cardiac meds lowering it
Resolved NICM
- hasn't seen us since 2017. It was assumed to be AF/tachycardia CM since it resolved with treatment
- update echo
Hypertension
Dyslipidemia
Morbid obesity
DMII
Pericardial cyst
Subjective: No CP, palps, or dyspnea.
Data
[facility] 2017: No CAD
Physical Exam
Vital Signs/Labs
Vital Signs
Temp Pulse Resp BP Pulse Ox
36.6 C 93 18 145/84 97
07/12/23 03:10 07/12/23 03:10 07/12/23 03:10 07/12/23 03:10 07/12/23 03:10
07/11/23 07/12/23 07/13/23
06:59 06:59 06:59
Actual Weight 266 lb 2 oz 266 lb 1 oz
07/12/23 06:53
Magnesium 1.9 mg/dl (1.6-2.3) 07/10/23 05:10
Physical Exam
Constitutional: No acute distress
EENT: Anicteric and Moist mucous membranes
Cardiovascular: Pedal edema is absent, Systolic murmur absent, Diastolic murmur absent and Rhythm/rate is irregular
Respiratory: Respiratory effort normal
GI: Soft, Distention absent, Non tender and Normal bowel sounds
Neuro/Psych: Alert
Data Reviewed
-
Date of Service: July 12, 2023
[2023-07-12 07:58] LABS: Blood Urea Nitrogen 31 mg/dl (7-17); Calcium 8.5 mg/dl (8.4-10.2); Carbon Dioxide 23 mmol/L (22-30); Chloride 109 mmol/L (98-107); Estimated Creatinine Clearance 43 ml/min; Glucose 102 mg/dl (70-99); Potassium 3.5 mmol/L (3.5-5.1); Sodium 133 mmol/L (135-145); eGFR 34.05
[2023-07-12 08:15] LABS: Mean Platelet Volume 12.2 fL (7.4-10.4); Platelet Count 97 10^3/uL (130-400)
[2023-07-12] MEDS: BETAPACE 80 MG PO (08:18)
[2023-07-12] MEDS: ZYLOPRIM 300 MG PO (08:19)
[2023-07-12] MEDS: COREG 25 MG PO ×2 (08:19→20:42)
[2023-07-12] MEDS: CARDIZEM CD 360 MG PO (08:20)
[2023-07-12] MEDS: VISBIOME 2 CAP PO (08:20)
[2023-07-12] MEDS: DESENEX/MITRAZOL/ZEASORB TOPICAL (08:27)
--- NOTE | 2023-07-12 11:10 | W.PN.HOSP.TC ---
Today's Communication/Plan
-
.
Assessment / Plan
Assessment / Plan
Physical Exam
General: Acutely ill
HEENT: NormoCephalic, Moist mucous membranes and Atraumatic
Respiratory: Clear
Cardiac: S1/S2 and Regular Rhythm; No Murmur or Rub
GI: Soft, Non Tender, Non Distended and Normal Bowel Sounds; No Organomegaly
Rectal: no rectal bleeding
Musculoskeletal: No Clubbing, No Cyanosis and No Edema
Skin: No Rash
Neuro: AO x 3 and Nonfocal/grossly intact
Psych: Calm
A/P:
# Sepsis likely from urinary tract infection
-E. coli bacteremia and E. coli in the urine
-On IV Rocephin 2 g daily
-ID consult appreciated
-Continue IV fluids gentle hydration and stop in am
-No dysuria. No flank pain.
# Paroxysmal atrial fibrillation with rapid ventricular response
Her HR seems around 100 but goes up upon exertion
Patient would like to try rate control medications first before agreeing to cardioversion. She understands that we might fail with medications and limitation of low blood pressure. She also understands that uncontrolled rapid heart rate might lead
to heart failure as she had that before.
D/W cardiology, trial of high dose CCB and BB with Sotalol
-Continue cardiac monitoring
-Continue Xarelto
-Appreciate cardiology
#Hyponatremia, mild
#Hypokalemia
-Improved
#Hypomagnesemia
-Repleted and improved
#Creatinine on admission 1.3. Creatinine 1.9 in 2017
Likely underlying chronic kidney disease stage IIIb
Stable creatinine at 1.6.
Continue to monitor renal function
#diarrhea/vomiting likely from UTI/viral
She is feeling better. No nausea or vomiting. Tolerating diet
-Zofran prn for n/v
-stool culture including C. difficile is negative and rest of stool cultures negative
# Hypertension urgency
Primary hypertension history
-Blood pressure elevated in ER--> now improved
-Held hydrochlorothiazide (might not restart in the setting of hyponatremia)
#type 2 DM
-not on diabetic meds
-Hemoglobin A1c 5.9
-Okay to continue only insulin sliding scale
=CHO diet
# Obesity BMI 41
#Gout
-allopurinol continued
# DVT prophylaxis
-Xarelto
# CODE STATUS
-Full code
Total time spent to see patient, examine the patient on the floor, review data and lab results, discuss treatment plan with patient, nursing staff around 55 minutes
Anticipated Discharge: 24 - 48 hours
Subjective/Interval History
-
Date of Service: July 12, 2023
No chest pain or sob
refuses DESHAWN and cardioversion
Objective Data
-
Labs:
Laboratory Results
07/12/23
06:53
WBC 6.1
Hgb 11.5 L
Hct 34.9 L
Plt Count 97 L
Sodium 133 L
Potassium 3.5
Chloride 109 H
Carbon Dioxide 23
BUN 31 H
Creatinine 1.6 H
Glucose 102 H
Calcium 8.5
Vital Signs:
Vital Signs
Temp Pulse Resp BP Pulse Ox
97.9 F 91 18 158/82 100
07/12/23 08:10 07/12/23 08:18 07/12/23 08:10 07/12/23 08:18 07/12/23 08:10
I&O
07/11/23 07/12/23 07/13/23
06:59 06:59 06:59
Intake Total 2099 1140 / 1140
Balance 2099 1140 / 1140
--- NOTE | 2023-07-12 11:46 | W.PN.ID1 ---
Date of Service
Date of Service: July 12, 2023
Today's Communication
- switched to cefdinir - to complete 7 day course 07/07-07/13
- follow up with PCP
Assessment / Plan
Complicated UTI due to E coli
E coli bacteremia
CKD
DM2 controlled
History of vaginitis with keflex, rash with amoxicillin, unknown reported allergy/adr with tetracycycline
- switched to cefdinir - to complete 7 day course 07/07-07/13
- OTC monistat PRN
- lactobacillus based probiotic may support usual vaginal paige
- follow up with PCP
Chief Complaint
-: UTI
Subjective / Review of Systems
afebrile
bp stable
without leukocytosis
cr stable
tolerating current therapies
no new complaints
Vital Signs / Physical Exam
Vital Signs
Vital Signs
Temp Pulse Resp BP Pulse Ox
97.9 F 91 18 158/82 100
07/12/23 08:10 07/12/23 08:18 07/12/23 08:10 07/12/23 08:18 07/12/23 11:39
Physical Exam
Constitutional: No Acute Distress
Cardiovascular: Regular Rate and S1/S2; Negative Murmur or Rub
Pulmonary: Clear and Symmetric; Negative Wheezes or Rales
Gastrointestinal: Soft, Non Tender, Non Distended and Normal Bowel Sounds
Skin: Warm and Dry; Negative Rash or Jaundice
Objective Data
Lab Data
Lab Results
07/12/23 06:53
07/12/23 06:53
Estimated Creat Clear 43 ml/min 07/12/23 06:53
Lactic Acid Cancelled 07/09/23 01:15
Total Bilirubin 1.4 mg/dl (0.2-1.3) H 07/08/23 22:17
AST 23 U/L (14-36) 07/08/23 22:17
ALT 14 U/L (0-35) 07/08/23 22:17
Alkaline Phosphatase 71 U/L (38-126) 07/08/23 22:17
Most recent labs reviewed.
Micro Results:
07/09/23 06:14 Salmonella/Shigella Culture - Final
Feces/Stool No Salmonella, Shigella, Aeromonas or Plesiomonas species
isolated.
Campylobacter Culture - Final
No Campylobacter species isolated.
Shiga Toxin Test - Final
No E. coli Shiga Toxin 1 or 2 detected.
07/08/23 22:17 Blood Culture - Final
Blood/Venous Escherichia coli
Gram Stain - Final
07/08/23 22:17 Blood Culture - Final
Blood/Venous Escherichia coli
Gram Stain - Final
07/08/23 22:46 Urine Culture - Final
Urine Escherichia coli
07/09/23 06:22 C. difficile GDH Antigen & Toxins - Final
Feces/Stool Negative for toxigenic C.difficile
[2023-07-12] MEDS: OMNICEF 300 MG PO ×2 (12:52→20:42)
--- NOTE | 2023-07-12 13:12 | VNURNOTE ---
Home Health Liaison met with patient at 1145 to discuss [facility] nurse/therapy, visits, schedule and homebound status.
Patient is strongly declining need for [facility]. Patient stated 'I have alot of things to take care of, alot of appointments and I do not think I need them' Liaison encouraged patient to consider short term VN and explained purpose of VN.
[facility] brochure provided with contact information.
[facility] referral was completed in [facility] and accepted, patient has declined but liaison will continue to follow.
Patient is aware that is she changes her mind after discharge from hospital that she can have her PCP set up [facility].
CM updated.
--- NOTE | 2023-07-12 13:55 | CM ---
CM reviewed chart
VN recommended by therapy
Bedside meeting with pt to fruther discuss
In agreement with referral to [facility]
Pt ntoed she might not want service though as she has a lot going on
Notes trying to clean and sell her house
Pt's friend to be added as emergency contact
Gisela Cainn [place] [phone]
Pt ntoes she will call a neighbor for a ride home
Referral to [facility]N
Per [facility], pt declined service
Discharge Disposition- home, no needs (pt declined VN)
[2023-07-12] MEDS: STERILE WATER FOR INJECTION IV (17:20)
[2023-07-12] MEDS: XARELTO 15 MG PO (17:20)
--- NOTE | 2023-07-12 18:00 | PTCARENOTE ---
patient was received sitting in her stationary chair - awake, alert and verbally responsive. patient is able to make her needs known and understands when being spoken too. patient did not have any behavioral/verbal indicators of discomfort or pain.
patient continues to have a good appetite for dinner. patient continues to refuse her accucheck's and her insulin. fluids encouraged throughout this nurse's shift. patient remains continent of bladder. patient remains in her chair at this time with
call bermudez, telephone and television remote within reach
[2023-07-12] MEDS: DESENEX/MITRAZOL/ZEASORB 1 APPLIC TOPICAL (20:43)
[2023-07-13 03:35] VITALS: BP 116/81
--- NOTE | 2023-07-13 05:13 | DOWNTIME ---
There was a [employer] Downtime on 07/13/2023 from 0100 to 07/13/2023 at 0439. Downtime documentation of patient's care, including medication administrations, has been reconciled in the electronic record per guidelines. Refer to the
patient's paper chart under the miscellaneous tab to see printed paper medication records and downtime forms.
[2023-07-13 06:00] VITALS: BMI 41.1
[2023-07-13 07:30] VITALS: BP 140/84
[2023-07-13 07:59] LABS: Hematocrit 34.6 % (37.0-47.0); Hemoglobin 11.4 g/dL (12.0-16.0); Mean Corp Hgb Conc. 32.9 g/dL (33.0-37.0); Mean Corpuscular Hgb 29.6 pg (27.0-31.0); Mean Corpuscular Volume 89.9 fL (81.0-99.0); Mean Platelet Volume 11.6 fL (7.4-10.4); Platelet Count 125 10^3/uL (130-400); Red Blood Cell Count 3.85 10^6/uL (4.20-5.40); Red Cell Dist. Width 14.2 % (11.5-14.5); White Blood Cell Count 6.5 10^3/uL (4.8-10.8)
[2023-07-13 09:15] LABS: Blood Urea Nitrogen 36 mg/dl (7-17); Calcium 8.7 mg/dl (8.4-10.2); Carbon Dioxide 23 mmol/L (22-30); Chloride 105 mmol/L (98-107); Estimated Creatinine Clearance 41 ml/min; Glucose 107 mg/dl (70-99); Magnesium 1.7 mg/dl (1.6-2.3); Potassium 4.2 mmol/L (3.5-5.1); Sodium 136 mmol/L (135-145); eGFR 31.66
[2023-07-13] MEDS: LASIX 40 MG IV (09:18)
[2023-07-13] MEDS: CARDIZEM CD 360 MG PO (09:19)
[2023-07-13] MEDS: BETAPACE 80 MG PO (09:20)
[2023-07-13] MEDS: OMNICEF 300 MG PO ×2 (09:20→20:11)
[2023-07-13] MEDS: VISBIOME 2 CAP PO (09:21)
[2023-07-13] MEDS: COREG 25 MG PO ×2 (09:21→12:16)
[2023-07-13] MEDS: ZYLOPRIM 300 MG PO (09:21)
[2023-07-13] MEDS: DESENEX/MITRAZOL/ZEASORB 1 APPLIC TOPICAL ×2 (09:22→20:03)
[2023-07-13 11:15] VITALS: BP 105/73
--- NOTE | 2023-07-13 11:24 | W.PN.HOSP.TC ---
Today's Communication/Plan
-
.
Assessment / Plan
Assessment / Plan
Physical Exam
General: Acutely ill
HEENT: NormoCephalic, Moist mucous membranes and Atraumatic
Respiratory: Clear
Cardiac: S1/S2 and Regular Rhythm; No Murmur or Rub
GI: Soft, Non Tender, Non Distended and Normal Bowel Sounds; No Organomegaly
Rectal: no rectal bleeding
Musculoskeletal: No Clubbing, No Cyanosis and No Edema
Skin: No Rash
Neuro: AO x 3 and Nonfocal/grossly intact
Psych: Calm
A/P:
# Sepsis due to complicated urinary tract infection
-E. coli bacteremia and E. coli in the urine
-On IV Rocephin 2 g daily
- s/p Cefepime, switched to Cefdinir
-Stop IVF
-No dysuria. No flank pain.
Appreciate ID help.
# Paroxysmal atrial fibrillation with rapid ventricular response
Her HR seems around 100 but goes up upon exertion
Patient would like to try rate control medications first before agreeing to cardioversion. She understands that we might fail with medications and limitation of low blood pressure. She also understands that uncontrolled rapid heart rate might lead
to heart failure as she had that before.
D/W cardiology, trial of high dose CCB and BB with Sotalol
-Continue cardiac monitoring
-Continue Xarelto
-Appreciate cardiology help
# Acute on chronic HFrEF
Gain weight over short time, B/L leg edema noted
will do IV Lasix.
#Hyponatremia, mild
#Hypokalemia
-Improved
#Hypomagnesemia
-Repleted and improved
#Creatinine on admission 1.3. Creatinine 1.9 in 2017
Likely underlying chronic kidney disease stage IIIb
Stable creatinine at 1.6.
Continue to monitor renal function
#diarrhea/vomiting likely from UTI/viral
She is feeling better. No nausea or vomiting. Tolerating diet
-Zofran prn for n/v
-stool culture including C. difficile is negative and rest of stool cultures negative
# Hypertension urgency
Primary hypertension history
-Blood pressure elevated in ER--> now improved
-Held hydrochlorothiazide (might not restart in the setting of hyponatremia)
#type 2 DM
-not on diabetic meds
-Hemoglobin A1c 5.9
-Okay to continue only insulin sliding scale
=CHO diet
# Obesity BMI 41
d/w pt at length, advised her to avoid snacks and carbs
#Gout
-allopurinol continued
# DVT prophylaxis
-Xarelto
# CODE STATUS
-Full code
Total time spent to see patient, examine the patient on the floor, review data and lab results, discuss treatment plan with patient, nursing staff around 57 minutes
Anticipated Discharge: 24 - 48 hours
Subjective/Interval History
-
Date of Service: July 13, 2023
Mild sob upon mild exertion
No chest pain
No palpitations
Objective Data
-
Labs:
Laboratory Results
07/13/23
07:25
WBC 6.5
Hgb 11.4 L
Hct 34.6 L
Plt Count 125 L D
Sodium 136
Potassium 4.2
Chloride 105
Carbon Dioxide 23
BUN 36 H
Creatinine 1.7 H
Glucose 107 H
Calcium 8.7
Vital Signs:
Vital Signs
Temp Pulse Resp BP Pulse Ox
97.6 F 66 20 105/73 99
07/13/23 11:15 07/13/23 11:15 07/13/23 11:15 07/13/23 11:15 07/13/23 11:15
I&O
07/12/23 07/13/2324
06:59 06:59 06:59
Intake Total 1140 / 1140 1620 / 1620
Balance 1140 / 1140 1620 / 1620
--- NOTE | 2023-07-13 12:08 | W.PN.CD ---
Addendum entered and electronically signed by Clayton Lozano MD 07/13/23 12:22:
I saw and examined the patient.
The [employer] HEL[employer]'s note was reviewed and I agree with the note.
Comment: 72F with persistent AF. Now on usual dose of carvedilol and diltiazem 360 without improvement. She feels an extra half dose of carvedilol will do the trick - this seems unlikely. However, I'll increase carvedilol to the full dose of 50 BID
(extra full dose from her perspective) and observe. I would pursue DESHAWN/CV in AM if still in AF/RVR. If she does not want that, then I would discharge with follow up.
Original Note:
Today's Communication / Plan
-
adjust rate-control meds and monitor
Impression / Plan
-
Impression: 72F with paroxysmal AF admitted with UTI/sepsis. AF has recurred.
Plan
AF:
- Patient declined DESHAWN/CV, so we are working on rate-control at this time
-she is currently on sotalol 80 mg daily (renal function), Coreg 25 mg PO BID, and diltiazem 360 mg daily. Unfortunately, her rate is still poorly controlled. Option to increase Coreg since weight would support the 50 BID dosage of carvedilol or
adjust diltiazem to verapamil- Will discuss with Dr. Lozano.
- rivaroxaban
UTI/sepsis:
-on ABX, management per primary team
Resolved NICM:
- hasn't seen us since 2017. It was assumed to be AF/tachycardia CM since it resolved with treatment
- echo 07/12/23: Normal LV size with low normal systolic function and no regional wall motion abnormalities. LVEF is 50 to 55% by visual estimation. Mild concentric LVH. Mild tricuspid regurgitation. Estimated pulmonary artery pressure of 38 mmHg
assuming a right atrial pressure of 8 mmHg.
-LE edema noted and I see that she is getting IV lasix per primary team- monitor response. Lungs clear.
Hypertension
Dyslipidemia
Morbid obesity
DMII
Pericardial cyst
Subjective:
No palpitations
Data
[facility] 2017: No CAD
Physical Exam
Vital Signs/Labs
Vital Signs
Temp Pulse Resp BP Pulse Ox
97.6 F 66 20 105/73 99
07/13/23 11:15 07/13/23 11:15 07/13/23 11:15 07/13/23 11:15 07/13/23 11:15
07/12/23 07/13/23 07/14/23
06:59 06:59 06:59
Actual Weight 120.684 kg 120.854 kg
07/13/23 07:25
07/13/23 07:25
Magnesium 1.7 mg/dl (1.6-2.3) 07/13/23 07:25
Physical Exam
Constitutional: No acute distress
EENT: Anicteric
Cardiovascular: Rhythm/rate is irregular and Pedal edema present (+1-2 BLE edema)
Respiratory: Respiratory effort normal and Lungs clear to auscul.
Neuro/Psych: AO x 3
Other: Skin (warm and dry)
Data Reviewed
-
Date of Service: July 13, 2023
EKG: Other (AFIB with fast rates)
--- NOTE | 2023-07-13 14:23 | VNURNOTE ---
Notified by CM that patient is now intersted and agreeable to [facility].
[facility] referral completed in [facility] and accepted.
[2023-07-13 15:20] VITALS: BP 125/55
--- NOTE | 2023-07-13 16:02 | W.PN.ID1 ---
Date of Service
Date of Service: July 13, 2023
Today's Communication
- continue cefdinir - to complete 7 day course 07/07-07/13
Assessment / Plan
Complicated UTI due to E coli
E coli bacteremia
CKD
DM2 controlled
History of vaginitis with keflex, rash with amoxicillin, unknown reported allergy/adr with tetracycycline
- continue cefdinir - to complete 7 day course 07/07-07/13
- OTC monistat PRN
- lactobacillus based probiotic may support usual vaginal paige
- follow up with PCP
Chief Complaint
-: UTI
Subjective / Review of Systems
tolerating current therapies
no new complaints
Vital Signs / Physical Exam
Vital Signs
Vital Signs
Temp Pulse Resp BP Pulse Ox
98.1 F 76 18 125/55 97
07/13/23 15:20 07/13/23 15:20 07/13/23 15:20 07/13/23 15:20 07/13/23 15:20
Physical Exam
Constitutional: No Acute Distress
Cardiovascular: Regular Rate and S1/S2; Negative Murmur or Rub
Pulmonary: Clear and Symmetric; Negative Wheezes or Rales
Gastrointestinal: Soft, Non Tender, Non Distended and Normal Bowel Sounds
Skin: Warm and Dry; Negative Rash or Jaundice
Objective Data
Lab Data
Lab Results
07/13/23 07:25
07/13/23 07:25
Estimated Creat Clear 41 ml/min 07/13/23 07:25
Lactic Acid Cancelled 07/09/23 01:15
Total Bilirubin 1.4 mg/dl (0.2-1.3) H 07/08/23 22:17
AST 23 U/L (14-36) 07/08/23 22:17
ALT 14 U/L (0-35) 07/08/23 22:17
Alkaline Phosphatase 71 U/L (38-126) 07/08/23 22:17
Most recent labs reviewed.
Micro Results:
07/09/23 06:14 Salmonella/Shigella Culture - Final
Feces/Stool No Salmonella, Shigella, Aeromonas or Plesiomonas species
isolated.
Campylobacter Culture - Final
No Campylobacter species isolated.
Shiga Toxin Test - Final
No E. coli Shiga Toxin 1 or 2 detected.
07/08/23 22:17 Blood Culture - Final
Blood/Venous Escherichia coli
Gram Stain - Final
07/08/23 22:17 Blood Culture - Final
Blood/Venous Escherichia coli
Gram Stain - Final
07/08/23 22:46 Urine Culture - Final
Urine Escherichia coli
07/09/23 06:22 C. difficile GDH Antigen & Toxins - Final
Feces/Stool Negative for toxigenic C.difficile
[2023-07-13] MEDS: XARELTO 15 MG PO (17:41)
[2023-07-13] MEDS: COREG 50 MG PO (20:11)
[2023-07-13 23:30] VITALS: BP 130/94
[2023-07-14 06:00] VITALS: BMI 40.8
--- NOTE | 2023-07-14 07:28 | CM ---
met with patient who is on iv rocephin for uti sepsis,also with elevated hr on coreg and cardizem,seen by cards,for razia/cv.patient now agreeable to vn/pt eval .[facility]Plan:dc home with [facility].
--- NOTE | 2023-07-14 08:01 | W.PN.CD ---
Today's Communication / Plan
-
- no further cardiac workup is anticipated and I will sign off
- Meds: Cardizem CD 360 po qd (new), sotalol 80 po qd (new dose), Xarelto 15 po qd (new dose), carvedilol 50 po BID (new dose), Lasix 20 po qd. Stop HCTZ
- Labs - BMP in 7 days
- Follow up: Bety Alejandre Jul 21 at 3:00 PM
- She is at high risk for readmission given her beliefs about her AF treatment & challenging home environment
Impression / Plan
-
Impression: 72F with paroxysmal AF admitted with UTI/sepsis. AF has recurred.
Plan
AF:
- Patient declined DESHAWN/CV, so we are working on rate-control at this time. She again declined DESHAWN/CV today
- she is currently on sotalol 80 mg daily (renal function), Coreg 50 mg PO BID, and diltiazem 360 mg daily. HR 100-120
- rivaroxaban
UTI/sepsis:
-on ABX, management per primary team
Resolved NICM:
- hasn't seen us since 2017. It was assumed to be AF/tachycardia CM since it resolved with treatment
- echo 07/12/23: Normal LV size with low normal systolic function and no regional wall motion abnormalities. LVEF is 50 to 55% by visual estimation. Mild concentric LVH. Mild tricuspid regurgitation. Estimated pulmonary artery pressure of 38 mmHg
assuming a right atrial pressure of 8 mmHg.
- Lasix until usual weight
Hypertension
Dyslipidemia
Morbid obesity
DMII
Pericardial cyst
Dispo
- no further cardiac workup is anticipated and I will sign off
- Meds: Cardizem CD 360 po qd (new), sotalol 80 po qd (new dose), Xarelto 15 po qd (new dose), carvedilol 50 po BID (new dose), Lasix 20 po qd. Stop HCTZ
- Labs - BMP in 7 days
- Follow up: Bety Alejandre Jul 21 at 3:00 PM
- She is at high risk for readmission given her beliefs about her AF treatment & challenging home environment
Subjective:Mild LE edema. No palps, No CP
Data
[facility] 2017: No CAD
Physical Exam
Vital Signs/Labs
Vital Signs
Temp Pulse Resp BP Pulse Ox
36.7 C 106 20 130/94 95
07/13/23 23:30 07/13/23 23:30 07/13/23 23:30 07/13/23 23:30 07/13/23 23:30
07/13/23 07/14/23 07/15/23
06:59 06:59 06:59
Actual Weight 266 lb 7 oz 264 lb 6 oz
07/13/23 07:25
Magnesium 1.7 mg/dl (1.6-2.3) 07/13/23 07:25
Physical Exam
Constitutional: No acute distress
EENT: Anicteric and Moist mucous membranes
Cardiovascular: Diastolic murmur absent, Rhythm/rate is irregular and Pedal edema present
Respiratory: Respiratory effort normal and Crackles Absent
GI: Soft, Distention absent and Non tender
Neuro/Psych: Alert
Data Reviewed
-
Date of Service: July 14, 2023
X-Ray/CT/US/MRI/NUC/PET: Discussed with Patient (Tele AF 90-110)
[2023-07-14 08:16] VITALS: BP 129/78
--- NOTE | 2023-07-14 09:12 | PN.CDI ---
Addendum entered and electronically signed by Jerrell Viera MD 07/14/23 09:43:
need clarification
call me at [phone] or TT
Original Note:
CDI
- -
CDI:
Physician Documentation Request
Admit Date: 07/08/23 23:50
Dear Doctor Maximiliano,
07/07 hospitalist update note states ' hx HFrEF'.
07/12 hospitalist progress note states ' Acute on chronic HFrEF, gain weight over short time, B/L leg edema noted. Will do IV lasix'
08/16/2016 medical laboratory assistant report Left ventriculography reports and EF 31% .
07/12/2023 Echo EF is reported at 50-55%
Please clarify the type of CHF you are evaluating, treating or monitoring.
Type
Systolic
Diastolic
Combined Systolic/Diastolic
Other
Use of terms such as suspected, likely, concern for, or probable (associated with a specific diagnosis that is being evaluated, monitored, or treated as if it exists) are acceptable and can be coded in the inpatient setting, when documented at the
time of discharge.
Thank you,
Cecelia Dunn RN, BSN
CDI Specialist
tiger text
Please use your independent medical judgment in providing your response.
[2023-07-14 09:20] LABS: Blood Urea Nitrogen 38 mg/dl (7-17); Calcium 8.6 mg/dl (8.4-10.2); Carbon Dioxide 25 mmol/L (22-30); Chloride 108 mmol/L (98-107); Estimated Creatinine Clearance 43 ml/min; Glucose 107 mg/dl (70-99); Potassium 4.4 mmol/L (3.5-5.1); Sodium 137 mmol/L (135-145); eGFR 34.05
[2023-07-14] MEDS: CARDIZEM CD 360 MG PO (09:21)
[2023-07-14] MEDS: BETAPACE 80 MG PO (09:21)
[2023-07-14] MEDS: OMNICEF 300 MG PO ×2 (09:22→19:47)
[2023-07-14] MEDS: VISBIOME 2 CAP PO (09:22)
[2023-07-14] MEDS: ZYLOPRIM 300 MG PO (09:22)
[2023-07-14] MEDS: COREG 50 MG PO ×2 (09:22→19:48)
[2023-07-14] MEDS: DESENEX/MITRAZOL/ZEASORB 1 APPLIC TOPICAL ×2 (09:24→19:46)
--- NOTE | 2023-07-14 09:27 | W.PN.HOSP.TC ---
Today's Communication/Plan
-
likely dc in am
Assessment / Plan
Assessment / Plan
Physical Exam
General:not Acutely ill
HEENT: NormoCephalic, Moist mucous membranes and Atraumatic
Respiratory: Clear
Cardiac: S1/S2 and Regular Rhythm; No Murmur or Rub
GI: Soft, Non Tender, Non Distended and Normal Bowel Sounds; No Organomegaly
Rectal: no rectal bleeding
Musculoskeletal: No Clubbing, No Cyanosis and No Edema
Skin: No Rash
Neuro: AO x 3 and Nonfocal/grossly intact
Psych: Calm
A/P:
# Sepsis due to complicated urinary tract infection
-E. coli bacteremia and E. coli in the urine
-On IV Rocephin 2 g daily
- s/p Cefepime, switched to Cefdinir
-Stop IVF
-No dysuria. No flank pain.
Appreciate ID help.
# Paroxysmal atrial fibrillation with rapid ventricular response
Her HR seems around 100 but goes up upon exertion
Patient would like to try rate control medications first before agreeing to cardioversion. She understands that we might fail with medications and limitation of low blood pressure. She also understands that uncontrolled rapid heart rate might lead
to heart failure as she had that before.
D/W cardiology, trial of high dose CCB and BB with Sotalol
-Continue cardiac monitoring
-Continue Xarelto, Cardizem, sotalol, higher dose of carvedilol
-Appreciate cardiology help
# Acute on chronic HFrEF, systolic in type
Gain weight over short time, B/L leg edema noted
c/w Lasix
#Hyponatremia, mild
#Hypokalemia
-Improved
#Hypomagnesemia
-Repleted and improved
#Creatinine on admission 1.3. Creatinine 1.9 in 2017
Likely underlying chronic kidney disease stage IIIb
Stable creatinine at 1.6.
Continue to monitor renal function
#diarrhea/vomiting likely from UTI/viral
She is feeling better. No nausea or vomiting. Tolerating diet
-Zofran prn for n/v
-stool culture including C. difficile is negative and rest of stool cultures negative
# Hypertension urgency
Primary hypertension history
-Blood pressure elevated in ER--> now improved
-Held hydrochlorothiazide (might not restart in the setting of hyponatremia)
#type 2 DM
-not on diabetic meds
-Hemoglobin A1c 5.9
-Okay to continue only insulin sliding scale
=CHO diet
# Obesity BMI 41
d/w pt at length, advised her to avoid snacks and carbs
#Gout
-allopurinol continued
# DVT prophylaxis
-Xarelto
# CODE STATUS
-Full code
Total time spent to see patient, examine the patient on the floor, review data and lab results, discuss treatment plan with patient, nursing staff around 57 minutes
Anticipated Discharge: Within 24 hours
Subjective/Interval History
-
Date of Service: July 14, 2023
Still sob upon walking
refuses cardioversion
No chest pain
Objective Data
-
Labs:
Laboratory Results
07/14/23
07:22
Sodium 137
Potassium 4.4
Chloride 108 H
Carbon Dioxide 25
BUN 38 H
Creatinine 1.6 H
Glucose 107 H
Calcium 8.6
Vital Signs:
Vital Signs
Temp Pulse Resp BP Pulse Ox
97.6 F 90 18 129/78 99
07/14/23 08:16 07/14/23 09:21 07/14/23 08:16 07/14/23 09:21 07/14/23 08:16
I&O
07/13/23 07/14/23 07/15/23
06:59 06:59 06:59
Intake Total 1620 / 1620 1080 / 1080
Balance 1620 / 1620 1080 / 1080
[2023-07-14] MEDS: LASIX 40 MG IV (09:39)
[2023-07-14 12:00] VITALS: BP 139/96
--- NOTE | 2023-07-14 15:14 | W.PN.ID1 ---
Date of Service
Date of Service: July 14, 2023
Today's Communication
final day of cefdinir
ID service will no longer actively follow this patient please recall for further questions
Assessment / Plan
Complicated UTI due to E coli
E coli bacteremia
CKD
DM2 controlled
History of vaginitis with keflex, rash with amoxicillin, unknown reported allergy/adr with tetracycycline
- final day of cefdinir
- OTC monistat PRN
- lactobacillus based probiotic may support usual vaginal paige
- follow up with PCP
ID service will no longer actively follow this patient please recall for further questions
Chief Complaint
-: UTI
Subjective / Review of Systems
afebrile
bp stable
cr stable
still with urgency but has also gained 3 kg since admission and on lasix; attribute to lasix
Vital Signs / Physical Exam
Vital Signs
Vital Signs
Temp Pulse Resp BP Pulse Ox
97.5 F 86 18 139/96 94
07/14/23 12:00 07/14/23 12:00 07/14/23 12:00 07/14/23 12:00 07/14/23 12:00
Physical Exam
Constitutional: No Acute Distress
Cardiovascular: Regular Rate and S1/S2; Negative Murmur or Rub
Pulmonary: Clear and Symmetric; Negative Wheezes or Rales
Gastrointestinal: Soft, Non Tender, Non Distended and Normal Bowel Sounds
Skin: Warm and Dry; Negative Rash or Jaundice
Objective Data
Lab Data
Lab Results
07/13/23 07:25
07/14/23 07:22
Estimated Creat Clear 43 ml/min 07/14/23 07:22
Lactic Acid Cancelled 07/09/23 01:15
Total Bilirubin 1.4 mg/dl (0.2-1.3) H 07/08/23 22:17
AST 23 U/L (14-36) 07/08/23 22:17
ALT 14 U/L (0-35) 07/08/23 22:17
Alkaline Phosphatase 71 U/L (38-126) 07/08/23 22:17
Most recent labs reviewed.
Micro Results:
07/09/23 06:14 Salmonella/Shigella Culture - Final
Feces/Stool No Salmonella, Shigella, Aeromonas or Plesiomonas species
isolated.
Campylobacter Culture - Final
No Campylobacter species isolated.
Shiga Toxin Test - Final
No E. coli Shiga Toxin 1 or 2 detected.
07/08/23 22:17 Blood Culture - Final
Blood/Venous Escherichia coli
Gram Stain - Final
07/08/23 22:17 Blood Culture - Final
Blood/Venous Escherichia coli
Gram Stain - Final
07/08/23 22:46 Urine Culture - Final
Urine Escherichia coli
07/09/23 06:22 C. difficile GDH Antigen & Toxins - Final
Feces/Stool Negative for toxigenic C.difficile
[2023-07-14 16:48] VITALS: BP 165/98
[2023-07-14] MEDS: XARELTO 15 MG PO (17:08)
--- NOTE | 2023-07-14 18:03 | PTCARENOTE ---
Pt moved her bedside commode from next to her bed behind the curtain to under the TV. This is in plain site of the doorway and her roommate. Once I noticed this, I explained to the PT that I was moving the commode back behind the curtain to allow
for maximum privacy not only for herself using the commode but to give her roommate and her visitors privacy. The PT in bed one had visitors who could visually see the PT on the commode. I moved the chair to the bedside facing the window and then
placed her commode next to the chair as she requested for easy and quick access. Pt appeared to be upset with the change all while I explained to her that this is the best way unless she is going to walk to the bathroom (and she can with a cane) but
she makes no attempt to do so. I advised the charge nurse of what happened and the result in the event an issue occurred.
[2023-07-14 19:00] VITALS: BP 152/90
[2023-07-14 23:58] VITALS: BP 144/90
[2023-07-15] VITALS (7 sets, daily range): BP systolic 135–176; BP diastolic 78–99; BMI 40.3
[2023-07-15 07:51] LABS: Blood Urea Nitrogen 33 mg/dl (7-17); Calcium 8.7 mg/dl (8.4-10.2); Carbon Dioxide 27 mmol/L (22-30); Chloride 107 mmol/L (98-107); Estimated Creatinine Clearance 46 ml/min; Glucose 109 mg/dl (70-99); Potassium 4.1 mmol/L (3.5-5.1); Sodium 136 mmol/L (135-145)
[2023-07-15] MEDS: DESENEX/MITRAZOL/ZEASORB 1 APPLIC TOPICAL ×2 (09:08→21:27)
[2023-07-15] MEDS: BETAPACE PO (09:10)
[2023-07-15] MEDS: CARDIZEM CD PO (09:10)
[2023-07-15] MEDS: COREG PO (09:11)
[2023-07-15] MEDS: VISBIOME PO (09:11)
[2023-07-15] MEDS: ZYLOPRIM PO (09:11)
[2023-07-15] MEDS: OMNICEF PO (09:11)
--- NOTE | 2023-07-15 09:53 | W.PN.HOSP.TC ---
Today's Communication/Plan
-
.
Assessment / Plan
Assessment / Plan
Physical Exam
General:not Acutely ill
HEENT: NormoCephalic, Moist mucous membranes and Atraumatic
Respiratory: Clear
Cardiac: S1/S2 and Regular Rhythm; No Murmur or Rub
GI: Soft, Non Tender, Non Distended and Normal Bowel Sounds; No Organomegaly
Rectal: no rectal bleeding
Musculoskeletal: No Clubbing, No Cyanosis and No Edema
Skin: No Rash
Neuro: AO x 3 and Nonfocal/grossly intact
Psych: Calm
A/P:
# Sepsis due to complicated urinary tract infection
-E. coli bacteremia and E. coli in the urine
-On IV Rocephin 2 g daily
- s/p Cefepime, switched to Cefdinir
-Stopped IVF
-No dysuria. No flank pain.
Appreciate ID help.
# Paroxysmal atrial fibrillation with rapid ventricular response
She is agreeable for cardioversion today
Keep NPO
Reached out to sap basis architect,
-Continue Mary Ann Bah,
-Appreciate cardiology help
# Acute on chronic HFrEF, systolic in type
She seems to loose weight now with improvement in creatinine
Gained weight over short time, B/L leg edema noted
c/w Lasix
#Hyponatremia, mild
#Hypokalemia
-Improved
#Hypomagnesemia
-Repleted and improved
#Creatinine on admission 1.3. Creatinine 1.9 in 2017
Likely underlying chronic kidney disease stage IIIb
Stable creatinine at 1.6.
Continue to monitor renal function
#diarrhea/vomiting likely from UTI/viral
She is feeling better. No nausea or vomiting. Tolerating diet
-Zofran prn for n/v
-stool culture including C. difficile is negative and rest of stool cultures negative
# Hypertension urgency
Primary hypertension history
-Blood pressure elevated in ER--> now improved
-Held hydrochlorothiazide (might not restart in the setting of hyponatremia).
#type 2 DM
-not on diabetic meds
-Hemoglobin A1c 5.9
-Okay to continue only insulin sliding scale
=CHO diet
# Obesity BMI 41
d/w pt at length, advised her to avoid snacks and carbs
#Gout
-allopurinol continued
# DVT prophylaxis
-Xarelto
# CODE STATUS
-Full code
Total time spent to see patient, examine the patient on the floor, review data and lab results, discuss treatment plan with patient, nursing staff around 59 minutes
Anticipated Discharge: 24 - 48 hours
Subjective/Interval History
-
Date of Service: July 15, 2023
Objective Data
-
Labs:
Laboratory Results
07/15/23
06:55
Sodium 136
Potassium 4.1
Chloride 107
Carbon Dioxide 27
BUN 33 H
Creatinine 1.5 H
Glucose 109 H
Calcium 8.7
Vital Signs:
Vital Signs
Temp Pulse Resp BP Pulse Ox
97.4 F 80 18 164/94 99
07/15/23 07:25 07/15/23 07:25 07/15/23 07:25 07/15/23 07:25 07/15/23 07:25
I&O
07/14/23 07/15/23 07/16/23
06:59 06:59 06:59
Intake Total 1080 / 1080 120 / 120
Balance 1080 / 1080 120 / 120
--- NOTE | 2023-07-15 10:32 | W.PN.CD ---
Today's Communication / Plan
-
Patient has had persistent atrial fibrillation with challenging to control rates. DESHAWN cardioversion has been recommended on more than 1 occasion and patient had declined however this morning patient requested to proceed with DESHAWN cardioversion. She
has been n.p.o. and has been getting Xarelto. I reviewed issues with the patient we discussed the procedure and risk. I also explained increased risk of anesthesia with obesity. Patient wants to proceed. Consent has been signed.
Continue anticoagulation as prescribed
N.p.o.
Continue sotalol
Holding morning Cardizem
Plan for DESHAWN cardioversion this afternoon
Impression / Plan
-
Impression: 72F with paroxysmal AF admitted with UTI/sepsis. AF has recurred.
Plan
AF:
- Patient declined DESHAWN/CV, so we are working on rate-control at this time. She again declined DESHAWN/CV today
- she is currently on sotalol 80 mg daily (renal function), Coreg 50 mg PO BID, and diltiazem 360 mg daily. HR 100-120
- rivaroxaban
UTI/sepsis:
-on ABX, management per primary team
Resolved NICM:
- hasn't seen us since 2017. It was assumed to be AF/tachycardia CM since it resolved with treatment
- echo 07/12/23: Normal LV size with low normal systolic function and no regional wall motion abnormalities. LVEF is 50 to 55% by visual estimation. Mild concentric LVH. Mild tricuspid regurgitation. Estimated pulmonary artery pressure of 38 mmHg
assuming a right atrial pressure of 8 mmHg.
- Lasix until usual weight
Hypertension
Dyslipidemia
Morbid obesity
DMII
Pericardial cyst
Subjective:Mild LE edema. No palps, No CP
Data
[facility] 2017: No CAD
Physical Exam
Vital Signs/Labs
Vital Signs
Temp Pulse Resp BP Pulse Ox
97.4 F 80 18 164/94 99
07/15/23 07:25 07/15/23 07:25 07/15/23 07:25 07/15/23 07:25 07/15/23 07:25
07/14/23 07/15/23 07/16/23
06:59 06:59 06:59
Actual Weight 119.918 kg 118.529 kg
07/13/23 07:25
07/15/23 06:55
Magnesium 1.7 mg/dl (1.6-2.3) 07/13/23 07:25
Physical Exam
Constitutional: No acute distress
EENT: Anicteric
Cardiovascular: Rhythm/rate is irregular
Respiratory: Respiratory effort normal, Wheeze Absent and Rhonchi Absent
GI: Soft, Non tender and Normal bowel sounds
Neuro/Psych: Alert, Oriented and AO x 3
Other: Other (Mild bilateral edema)
Data Reviewed
-
Date of Service: July 15, 2023
Medical Decision Making: Reviewed Test Results
X-Ray/CT/US/MRI/NUC/PET: Report Reviewed by me and Discussed with Nurse
Medical Tests (PFT, Pathology etc): Report Reviewed by me
Labs: Labs Reviewed by me
[2023-07-15 12:20] LABS: TSH Reflex To Free T4 3.71 uIU/ml (0.47-4.68)
--- NOTE | 2023-07-15 13:11 | ITS.CL.CARDI ---
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
Cardioversion
Procedure Report:
Procedure: DESHAWN-guided electrical cardioversion
Pre-operative diagnosis: Persistent atrial fibrillation
Post-operative diagnosis: Persistent atrial fibrillation status post DC cardioversion to sinus rhythm
Anesthesia: MAC
Attending Physician: Antonio Wayne MD
Procedure Description: The patient was brought to the electrophysiology laboratory in the fasting state. Informed consent was obtained from the patient prior to the start of the procedure. Adherence to anticoagulation was confirmed. Electrodes were
placed on the patient and connected to an external defibrillator. Monitoring of blood pressure, ECG tracings, and pulse oximetry was initiated. The pads were applied to the patient in the anterior and posterior positions. The patient was sedated by
the anesthesiologist. A DESHAWN (reported separately) was performed prior to the cardioversion. No left atrial or left atrial appendage thrombus was seen. After the DESHAWN probe was removed, a 200 joule biphasic synchronized shock was delivered to the
patient under MAC anesthesia. Sinus rhythm was successfully restored. The patient recovered uneventfully from MAC anesthesia. There were no immediate post-procedure complications. The patient left the lab in good condition. The attending physician
was present throughout the entire procedure.
Impression: Successful DESHAWN-guided direct current cardioversion with catholic of sinus rhythm after one 200 joule biphasic synchronized shock.
[2023-07-15] MEDS: BETAPACE 80 MG PO (13:23)
[2023-07-15] MEDS: VISBIOME 2 CAP PO (13:30)
--- NOTE | 2023-07-15 14:11 | W.PN.UPDATE ---
Update Note
Progress Note Update
Patient s/p cardioversion. Sotalol administered by nursing. Post procedure EKG stable. HR 60's in SR. Will decrease Coreg back to 25 mg PO BID. Stop diltiazem and monitor telemetry. Discussed with Dr. Damian and nursing.
[2023-07-15] MEDS: XARELTO 15 MG PO (16:57)
--- NOTE | 2023-07-15 17:42 | PTCARENOTE ---
Patient had TTE/Cardioversion today. Patient remains in NSR with heart rate in 60s/60s. Denies complaints. BP 140/88.
[2023-07-15] MEDS: OMNICEF 300 MG PO (21:26)
[2023-07-15] MEDS: COREG 25 MG PO (21:27)
[2023-07-16] VITALS (7 sets, daily range): BP systolic 126–190; BP diastolic 61–98; PULSE 65; O2SAT 99; BMI 40.6
--- NOTE | 2023-07-16 08:54 | W.PN.HOSP.TC ---
Today's Communication/Plan
-
Wants to go home tomorrow
Assessment / Plan
Assessment / Plan
Physical Exam
General:not Acutely ill
HEENT: NormoCephalic, Moist mucous membranes and Atraumatic
Respiratory: Clear
Cardiac: S1/S2 and Regular Rhythm; No Murmur or Rub
GI: Soft, Non Tender, Non Distended and Normal Bowel Sounds; No Organomegaly
Rectal: no rectal bleeding
Musculoskeletal: No Clubbing, No Cyanosis and No Edema
Skin: No Rash
Neuro: AO x 3 and Nonfocal/grossly intact
Psych: Calm
A/P:
# Paroxysmal atrial fibrillation with rapid ventricular response
s/p cardioversion 07/14 after refusing the procedure for several days
Now in SR, c/w Coreg ( reduced back to 25 mg BID) , Sotalol and Xarelto.
-Appreciate cardiology help
# Sepsis due to complicated urinary tract infection, resolved. Finished ABx course.
-E. coli bacteremia and E. coli in the urine
-No dysuria. No flank pain.
Appreciate ID help.
# Acute on chronic HFrEF, systolic in type
She seems to loose weight now with improvement in creatinine
Gained weight over short time, B/L leg edema noted
c/w Lasix, change to oral Lasix 20 mg QD.
#Hyponatremia, mild
#Hypokalemia
-Improved
#Hypomagnesemia
-Repleted and improved
#Creatinine on admission 1.3. Creatinine 1.9 in 2017
Seems underlying chronic kidney disease stage IIIb
Stable creatinine at 1.5- 1.7.
#diarrhea/vomiting likely from UTI/viral
She is feeling better. No nausea or vomiting. Tolerating diet
-Zofran prn for n/v
-stool culture including C. difficile is negative and rest of stool cultures negative
# Hypertension urgency, resolved.
Primary hypertension history
-Blood pressure elevated in ER--> now improved
-Held hydrochlorothiazide (might not restart in the setting of hyponatremia).
#type 2 DM
-not on diabetic meds
-Hemoglobin A1c 5.9
-Okay to continue only insulin sliding scale
=CHO diet
# Obesity BMI 41
d/w pt at length, advised her to avoid snacks and carbs
#Gout
-allopurinol continued
# DVT prophylaxis
-Xarelto
# CODE STATUS
-Full code
Total time spent to see patient, examine the patient on the floor, review data and lab results, discuss treatment plan with patient, nursing staff around 55 minutes
Anticipated Discharge: Within 24 hours
Subjective/Interval History
-
Date of Service: July 16, 2023
No chest pain
No sob
Objective Data
-
Vital Signs:
Vital Signs
Temp Pulse Resp BP Pulse Ox
98 F 64 18 132/62 97
07/16/23 08:19 07/16/23 08:19 07/16/23 08:19 07/16/23 08:19 07/16/23 08:19
I&O
07/15/23 07/16/23 07/17/23
06:59 06:59 06:59
Intake Total 120 / 120 960 / 960
Balance 120 / 120 960 / 960
[2023-07-16] MEDS: VISBIOME 2 CAP PO (09:20)
[2023-07-16] MEDS: COREG 25 MG PO (09:21)
[2023-07-16] MEDS: ZYLOPRIM 300 MG PO (09:21)
[2023-07-16] MEDS: BETAPACE 80 MG PO (09:21)
[2023-07-16] MEDS: DESENEX/MITRAZOL/ZEASORB TOPICAL ×2 (09:41→21:05)
--- NOTE | 2023-07-16 10:01 | W.PN.CD ---
Addendum entered and electronically signed by Fortino Damian MD 07/16/23 11:51:
I saw and examined the patient.
The CALL CENTER AGENT's note was reviewed and I agree with the note.
Patient feels well remains in sinus rhythm. Patient has been set some limits on additional treatments that she would like and initially declined DESHAWN cardioversion but then finally agreed to yesterday. We had discussed additional medication
options. Patient had been on diltiazem when her rates were fast but did not favor going on it after cardioversion. She is currently back on Coreg 25 mg twice daily. She had been on Coreg 50 mg twice daily when her rates were fast. Will increase
Coreg to 37.5 mg twice daily.
Continue to monitor edema. Monitor weights. Patient may need higher Lasix dosing.
Original Note:
Today's Communication / Plan
-
s/p DESHAWN/DCCV - con't NSR
con't coreg ,sotalol, xarelto
monitor edema with lasix. Compression as needed.
Impression / Plan
-
Impression: 72F with paroxysmal AF admitted with UTI/sepsis. AF has recurred.
Plan
AF:
- s/p DESHAWN/DCCV 07/15/23. Now in NSR
- she is currently on sotalol 80 mg daily (renal function), Coreg 25 mg PO BID, initially was on diltiazem 360 mg daily when rate controlling but stopped with DCCV.
- rivaroxaban
UTI/sepsis:
-, management per primary team
Resolved NICM:
- hasn't seen us since 2017. It was assumed to be AF/tachycardia CM since it resolved with treatment
- echo 07/12/23: Normal LV size with low normal systolic function and no regional wall motion abnormalities. LVEF is 50 to 55% by visual estimation. Mild concentric LVH. Mild tricuspid regurgitation. Estimated pulmonary artery pressure of 38 mmHg
assuming a right atrial pressure of 8 mmHg.
- con't lasix
Hypertension: con't meds, HCTZ was d/c secondary to hyponatremia initially.
Dyslipidemia
Morbid obesity
DMII
Pericardial cyst
Subjective:
Breathing feels better. C/o LE edema since admit. States usually does not have it at home with her HCTZ.
Data
[facility] 2017: No CAD
Physical Exam
Vital Signs/Labs
Vital Signs
Temp Pulse Resp BP Pulse Ox
98 F 64 18 132/62 97
07/16/23 08:19 07/16/23 08:19 07/16/23 08:19 07/16/23 08:19 07/16/23 08:19
07/15/23 07/16/23 07/17/23
06:59 06:59 06:59
Actual Weight 118.529 kg 119.38 kg
07/13/23 07:25
07/15/23 06:55
Magnesium 1.7 mg/dl (1.6-2.3) 07/13/23 07:25
Physical Exam
Constitutional: No acute distress
Cardiovascular: Rhythm & rate is regular and Pedal edema present (mild-mod bilat LE edema)
Respiratory: Respiratory effort normal and Lungs clear to auscul.
Neuro/Psych: AO x 3
Data Reviewed
-
Date of Service: July 16, 2023
EKG: Other (Tele NSR 60's )
[2023-07-16] MEDS: XARELTO 15 MG PO (18:05)
[2023-07-16] MEDS: COREG 37.5 MG PO (21:03)
[2023-07-17 03:53] VITALS: BP 153/84
[2023-07-17 06:00] VITALS: BMI 40.8
[2023-07-17 07:09] LABS: Hematocrit 32.5 % (37.0-47.0); Hemoglobin 10.5 g/dL (12.0-16.0); Mean Corp Hgb Conc. 32.3 g/dL (33.0-37.0); Mean Corpuscular Volume 92.9 fL (81.0-99.0); Mean Platelet Volume 10.2 fL (7.4-10.4); Platelet Count 265 10^3/uL (130-400); White Blood Cell Count 8.9 10^3/uL (4.8-10.8)
[2023-07-17 07:36] LABS: Blood Urea Nitrogen 28 mg/dl (7-17); Calcium 8.4 mg/dl (8.4-10.2); Carbon Dioxide 23 mmol/L (22-30); Chloride 109 mmol/L (98-107); Estimated Creatinine Clearance 49 ml/min; Glucose 93 mg/dl (70-99); Potassium 3.9 mmol/L (3.5-5.1); Sodium 139 mmol/L (135-145); eGFR 39.97
[2023-07-17 07:50] VITALS: BP 186/88
[2023-07-17] MEDS: BETAPACE 80 MG PO (09:24)
[2023-07-17] MEDS: LASIX 40 MG PO (09:24)
[2023-07-17] MEDS: VISBIOME 2 CAP PO (09:24)
[2023-07-17] MEDS: ZYLOPRIM PO (09:24)
[2023-07-17] MEDS: COREG 37.5 MG PO (09:25)
[2023-07-17] MEDS: DESENEX/MITRAZOL/ZEASORB TOPICAL (09:26)
--- NOTE | 2023-07-17 10:26 | W.DCSUMMARY ---
Discharge Summary
Discharge Data
Date of Admission: 07/08/23
Date of Discharge: 07/17/23
-
Pending Results: No
Hospital Course
72 years old female admitted with weakness, fever and dysuria. Patient was diagnosed with urosepsis. Patient was evaluated by infectious disease doctor. She was started on intravenous antibiotics. She was found to have bacteremia with
Escherichia coli. Patient was followed by infectious diseases performance improvement consultant. Her condition stabilized and she started to feel better. Her heart rate was sinus rhythm but converted into atrial fibrillation with rapid response. Patient had history of
paroxysmal atrial fibrillation. Patient was not following with breakfast bar attendant. Cardiology was consulted and she was started on intravenous Cardizem. Sepsis resolved. Repeat blood culture came back clean. Her heart rate continued to be in atrial
fibrillation. Patient reported recent weight gain. She was not compliant with cardiac diet at home. Cardiology recommended transesophageal echocardiogram with cardioversion. Patient declined to have cardioversion. Her heart rate continue to be
irregular and uncontrolled despite titrating up her medications. Patient was started on Lasix therapy for acute on chronic heart failure with reduced ejection fraction. After few days, patient agreed to have cardioversion. Transesophageal
echocardiogram showed left ventricular ejection fraction 55% with mild concentric left ventricular hypertrophy, normal right ventricular size and function, mild tricuspid regurgitation, moderate plaque seen in the aortic arch and ascending aorta.
Patient received direct-current cardioversion with successful conversion to sinus rhythm. Her heart medications were adjusted. She was advised to continue sotalol, Xarelto, carvedilol and Lasix. Doses of her medications were adjusted according to
her kidney function. Patient was noted to have hyponatremia and hydrochlorothiazide was stopped. Was maintained on Xarelto. Patient was evaluated by physical therapy and recommended home health services. She was counseled to lose weight and
follow healthy diet. Patient did not want to continue with cardiac diet in the hospital. She was advised to elevate her legs to avoid dependent edema. Patient remained hemodynamically stable and was discharged in a stable condition. Patient was
given a prescription to do blood work to monitor her renal function and potassium level.
Physical Exam
General:not Acutely ill
HEENT: NormoCephalic, Moist mucous membranes and Atraumatic
Respiratory: Clear
Cardiac: S1/S2 and Regular Rhythm.
GI: Soft, Non Tender, Non Distended and Normal Bowel Sounds; No Organomegaly
Rectal: no rectal bleeding
Musculoskeletal: No Clubbing, No Cyanosis. Chronic edema both legs.
Skin: No Rash
Neuro: AO x 3 and Nonfocal/grossly intact
Psych: Calm.
Total discharge time spent to see patient, examine the patient on the floor, review data and lab results, discuss discharge plan with patient, breakfast bar attendant, nursing staff around 65 minutes
Discharge Plan
-
Patient Disposition: Home with Home Care
Discharge Diagnosis/Procedures: Paroxysmal atrial fibrillation with rapid ventricular response, status post cardioversion. Sotalol was changed to once a day due to kidney function. Xarelto dose was changed to 15 mg daily due to kidney function.
Urinary tract infection with bacteremia, resolved, finished treatment.
Acute on chronic failure with reduced ejection fraction. We stopped Hydrochlorothiazide, we changed to Lasix.
Hyponatremia, resolved.
Hypokalemia, resolved.
Acute kidney injury, chronic kidney disease stage IIIb.
primary hypertension
Obesity. Body mass index (BMI) 40.
Please do blood work in 3 days to monitor your renal function, potassium level.
Condition: Fair
Diet: Low Fat and 2 Gram Sodium
Blood Work: BMP in 3 days.
Referrals:
Bety Alejandre CRNP [Specified Professional Personl] - 07/22/23 3:00 pm
Anselmo Youngblood MD [Family Provider] - in one to two weeks
Prescriptions:
New
carvedilol 25 mg Tablet
37.5 mg PO BID Qty: 60 0RF
furosemide 20 mg Tablet
40 mg PO DAILY Qty: 30 0RF
Xarelto 15 mg Tablet
15 mg PO QPM Qty: 30 0RF
potassium chloride 20 mEq tablet extended release
20 meq PO DAILY Qty: 30 0RF
Continued
allopurinol 100 MG tablet
300 mg PO DAILY
Changed
sotalol 80 mg Tablet
80 mg PO DAILY Qty: 0 0RF
Discontinued
Xarelto 20 MG tablet
20 mg PO QPM Qty: 30 2RF
carvedilol 6.25 MG tablet
25 mg PO BID
hydrochlorothiazide 25 mg Tablet
25 mg PO DAILY
Discharge Orders:
Discharge Patient (As Directed); Ordered 07/17/23
Ordered By: Jerrell Viera
Discharge Date and Time
Discharge Date/Time: 07/17/23 14:16
Print Language: FAROESE
[2023-07-17 11:20] VITALS: BP 150/76
--- NOTE | 2023-07-17 12:15 | CM ---
Addendum entered by Mary Hunter RN 07/17/23 14:32:
Pt said her neighbor is away and her car is home so she can not drive herself home.
[employer] set up for patient.Pt arrived home.
Original Note:
MD entered order for discharge .
As per Care port pt accepted with [facility].
PLAN Home with [facility]
== END 2023-07-17 14:16 | disposition home health service (06) | DRG 871 ==
LOC: 4 EAST ACU 23:50
PROVIDERS: Internal Medicine Cardiovascular Disease; Nurse Practitioner Gerontology; Registered Nurse; ADMITTING PHYSICIAN Internal Medicine; ATTENDING PHYSICIAN Internal Medicine; CONSULT PHYSICIAN Internal Medicine Cardiovascular Disease; CONSULT PHYSICIAN Student in an Organized Health Care Education/Training Program; EMERGENCY PHYSICIAN Emergency Medicine; FAMILY PHYSICIAN Family Medicine
PROC: 5A2204Z Restoration of Cardiac Rhythm, Single (ICD-10-PCS; 2023-07-15)
PROC: B24BZZ4 Ultrasonography of Heart with Aorta, Transesophageal (ICD-10-PCS; 2023-07-15)
DX: A41.51 Sepsis due to Escherichia coli [E. coli] (principal); I50.23 Acute on chronic systolic (congestive) heart failure; I13.0 Hypertensive heart and chronic kidney disease with heart failure and stage 1 through stage 4 chronic kidney disease, or unspecified chronic kidney disease; N39.0 Urinary tract infection, site not specified; Z68.41 Body mass index [BMI] 40.0-44.9, adult; N17.9 Acute kidney failure, unspecified; I42.8 Other cardiomyopathies; I48.19 Other persistent atrial fibrillation; E87.1 Hypo-osmolality and hyponatremia; Z60.2 Problems related to living alone; R39.15 Urgency of urination; N18.32 Chronic kidney disease, stage 3b; M10.9 Gout, unspecified; M19.90 Unspecified osteoarthritis, unspecified site; R91.1 Solitary pulmonary nodule; I16.0 Hypertensive urgency; R15.9 Full incontinence of feces; D69.59 Other secondary thrombocytopenia; R19.7 Diarrhea, unspecified; E66.01 Morbid (severe) obesity due to excess calories; I25.10 Atherosclerotic heart disease of native coronary artery without angina pectoris; E11.22 Type 2 diabetes mellitus with diabetic chronic kidney disease; E78.00 Pure hypercholesterolemia, unspecified; Z91.148 Patient's other noncompliance with medication regimen for other reason; Z79.01 Long term (current) use of anticoagulants; Z79.84 Long term (current) use of oral hypoglycemic drugs; Z88.1 Allergy status to other antibiotic agents; Z88.0 Allergy status to penicillin; Z86.19 Personal history of other infectious and parasitic diseases; E87.6 Hypokalemia; E86.0 Dehydration; E83.42 Hypomagnesemia
CPT/HCPCS: 51701; 71045; 80048; 80053; 81003; 81015; 82962; 83036; 83605; 83735; 84443; 85025; 85027; 87040; 87045; 87046; 87086; 87088; 87149; 87186; 87205; 87324; 87427; 87449; 92960; 93005; 93306; 93312; 93320; 93325; 96361; 96365; 96375; 97116; 97162; 99285

== ENCOUNTER 2023-08-17 07:05 | Day surgery (SDC) | payer OTHER, SELFPAY ==
[2023-08-17 09:22] VITALS: BMI 46.5
== END 2023-08-17 10:11 | disposition home or self-care (01) ==
LOC: CATH 07:05
PROVIDERS: ATTENDING PHYSICIAN Internal Medicine Cardiovascular Disease; FAMILY PHYSICIAN Family Medicine
DX: I48.0 Paroxysmal atrial fibrillation (principal); I48.92 Unspecified atrial flutter; I08.1 Rheumatic disorders of both mitral and tricuspid valves; I12.9 Hypertensive chronic kidney disease with stage 1 through stage 4 chronic kidney disease, or unspecified chronic kidney disease; E11.22 Type 2 diabetes mellitus with diabetic chronic kidney disease; N18.30 Chronic kidney disease, stage 3 unspecified; E78.2 Mixed hyperlipidemia; E66.9 Obesity, unspecified; Z68.39 Body mass index [BMI] 39.0-39.9, adult; Z79.01 Long term (current) use of anticoagulants
CPT/HCPCS: 93312; 93320; 93325; 92960; 93005